=== PATIENT | female | born 1950 | race Native Hawaiian/Other Pacific Islander ===

== ENCOUNTER 2017-11-24 20:37 | Outpatient (CLI) | payer OTHER ==
[~2017-11-24 20:37] MED LIST: ALLO300T23 PO; DEXILANT60 M1 PO; HYZAAR1 TA2 PO; SPIR25TA66 PO; VENLAFAXINE100 MG PO
[2017-11-25] MEDS ORDERED: OXYC5TAB24 PO (02:07)
[2017-11-25] MEDS ORDERED: SPIRONOLACT25 MG PO (02:08)
[2017-11-25] MEDS ORDERED: TRICOR145 M1 PO (02:10)
== END 2017-11-24 21:11 | disposition short-term general hospital (02) ==
LOC: AMB 20:37
DX: M54.89 Other dorsalgia (principal); W01.198A Fall on same level from slipping, tripping and stumbling with subsequent striking against other object, initial encounter; Y92.092 Bedroom in other non-institutional residence as the place of occurrence of the external cause
CPT/HCPCS: A0425; A0427

== ENCOUNTER 2018-01-03 03:53 | Outpatient (CLI) | payer OTHER ==
[~2018-01-03 03:53] MED LIST changes: +OXYC5TAB24 PO; +SPIRONOLACT25 MG PO; +TRICOR145 M1 PO
== END 2018-01-03 03:57 | disposition short-term general hospital (02) ==
LOC: AMB 03:53
DX: M54.5 Low back pain (principal)
CPT/HCPCS: A0425; A0429

== ENCOUNTER 2018-01-03 03:58 | Emergency (ER) | payer OTHER ==
[~2018-01-03] VITALS: Ht 165.1 cm; Wt 86.2 kg
[2018-01-03 04:08] VITALS: TEMP 98.1
[2018-01-03 08:43] VITALS: BP 148/62
== END 2018-01-03 08:43 | disposition home or self-care (01) ==
LOC: ED 03:58
DX: G89.29 Other chronic pain (principal); M47.897 Other spondylosis, lumbosacral region
CPT/HCPCS: 96372; 99283; J1885

== ENCOUNTER 2018-09-24 14:25 | Outpatient (CLI) | payer OTHER | END 2018-09-24 14:26 | disposition short-term general hospital (02) | LOC: AMB 14:25 | DX: M54.89 Other dorsalgia (principal); Z91.81 History of falling | CPT/HCPCS: A0425; A0429 ==

== ENCOUNTER 2018-09-24 14:29 | Inpatient (IN) | payer OTHER ==
[~2018-09-24] VITALS: Ht 165.1 cm; Wt 95.5 kg
[2018-09-24 14:29] VITALS: BP 171/100; TEMP 98
[2018-09-24 21:24] LABS: PLATELET COUNT 239 K/uL (152-353)
[2018-09-24 21:37] LABS: POTASSIUM 3.7 mmol/L (3.6-5.2)
[2018-09-25 00:32] VITALS: BP 120/69; TEMP 98.1; Ht 165.1 cm; Wt 95.5 kg
[2018-09-25 04:00] VITALS: BP 135/72; TEMP 98.6
[2018-09-25 08:00] VITALS: BP 185/106; TEMP 98.3
[2018-09-25 12:10] VITALS: BP 136/78; TEMP 98.9
[2018-09-25 16:05] VITALS: BP 155/100; TEMP 98.5
[2018-09-25 20:00] VITALS: BP 146/86; TEMP 98.8
[2018-09-26] VITALS: BP 160/78; TEMP 98.6
[2018-09-26 04:00] VITALS: BP 171/82; TEMP 98.8
[2018-09-26 08:05] VITALS: BP 160/94; TEMP 98.3
[2018-09-26 09:31] LABS: POTASSIUM 3.7 mmol/L (3.6-5.2)
[2018-09-26 09:40] LABS: PLATELET COUNT 207 K/uL (152-353)
[2018-09-26 12:06] VITALS: BP 152/79; TEMP 98.2
[2018-09-26 16:03] VITALS: BP 170/88; TEMP 98.7
[2018-09-26 20:00] VITALS: BP 184/93; TEMP 99.1
[2018-09-27] VITALS: BP 172/88; TEMP 98.8
[2018-09-27 04:00] VITALS: BP 165/67; TEMP 98.8
[2018-09-27 08:04] VITALS: BP 155/88; TEMP 98.4
[2018-09-27 12:18] VITALS: BP 168/93; TEMP 98.7
[2018-09-27 16:03] VITALS: BP 140/82; TEMP 98.8
[2018-09-27 16:09] LABS: PLATELET COUNT 187 K/uL (152-353)
[2018-09-27 20:00] VITALS: BP 149/95; TEMP 99
[2018-09-28] VITALS: BP 149/78; TEMP 98.4
[2018-09-28 04:00] VITALS: BP 156/78; TEMP 97.7
[2018-09-28 07:17] LABS: POTASSIUM 3.7 mmol/L (3.6-5.2)
[2018-09-28 08:04] VITALS: BP 154/89; TEMP 98.7
[2018-09-28 12:05] VITALS: BP 147/78; TEMP 98.5
[2018-09-28 16:03] VITALS: BP 170/85; TEMP 99
[2018-09-28 20:00] VITALS: BP 139/94; TEMP 98.7
[2018-09-29] VITALS (17 sets, daily range): BP systolic 103–163; BP diastolic 55–106; TEMP 97–98.8
[2018-09-29 07:03] LABS: POTASSIUM 4.4 mmol/L (3.6-5.2)
[2018-09-30] VITALS (22 sets, daily range): BP systolic 91–154; BP diastolic 64–103; TEMP 97.9–98.1
[2018-09-30 10:30] LABS: POTASSIUM 3.3 mmol/L (3.6-5.2)
[2018-10-01] VITALS (24 sets, daily range): BP systolic 104–134; BP diastolic 56–95; TEMP 98.4–100.1
[2018-10-01 08:21] LABS: POTASSIUM 3.2 mmol/L (3.6-5.2)
[2018-10-01 08:36] LABS: PLATELET COUNT 166 K/uL (152-353)
[2018-10-02] VITALS (21 sets, daily range): BP systolic 107–146; BP diastolic 69–98; TEMP 98.1–99
[2018-10-02 08:04] LABS: POTASSIUM 3.4 mmol/L (3.6-5.2)
[2018-10-02 08:11] LABS: PLATELET COUNT 214 K/uL (152-353)
[2018-10-03] VITALS (20 sets, daily range): BP systolic 91–140; BP diastolic 61–100; TEMP 98.1–99.1
[2018-10-03 08:20] LABS: PLATELET COUNT 288 K/uL (152-353)
[2018-10-03 08:22] LABS: POTASSIUM 3.4 mmol/L (3.6-5.2)
[2018-10-03] MEDS ORDERED: DULO30CA PO (12:59)
[2018-10-03] MEDS ORDERED: VENLAFAXINE75 M2 PO (13:01)
[2018-10-04 00:03] VITALS: BP 123/80; TEMP 98.7
[2018-10-04 04:00] VITALS: BP 121/64; TEMP 98.8
[2018-10-04 06:55] LABS: PLATELET COUNT 280 K/uL (152-353)
[2018-10-04 07:02] LABS: POTASSIUM 3.4 mmol/L (3.6-5.2)
[2018-10-04 08:05] VITALS: BP 123/65; TEMP 98.5
[2018-10-04 12:05] VITALS: BP 155/66; TEMP 98.4
[2018-10-04 15:43] VITALS: BP 135/85; TEMP 98.4
[2018-10-04 20:00] VITALS: BP 141/68; TEMP 98.8
[2018-10-05] VITALS (7 sets, daily range): BP systolic 124–173; BP diastolic 71–94; TEMP 98.2–98.8
[2018-10-05 10:07] LABS: PLATELET COUNT 281 K/uL (152-353)
[2018-10-05 10:15] LABS: POTASSIUM 4.3 mmol/L (3.6-5.2)
[2018-10-06 04:18] VITALS: BP 118/74; TEMP 98.9
[2018-10-06 08:00] VITALS: BP 146/87; TEMP 98.2
[2018-10-06 12:00] VITALS: BP 139/85; TEMP 98.3
== END 2018-10-06 14:30 | DRG 913 ==
LOC: ED 14:29 → ICU 22:50 → MED/SURG 22:50 → ICU 09-29 12:30 → MED/SURG 10-03 18:32
PROVIDERS: Emergency Medicine; Family Medicine
PROC: 5A12012 Performance of Cardiac Output, Single, Manual (ICD-10-PCS; principal; 2018-09-29)
DX: S39.82XA Other specified injuries of lower back, initial encounter (principal); I46.9 Cardiac arrest, cause unspecified; J18.8 Other pneumonia, unspecified organism; N39.0 Urinary tract infection, site not specified; N18.4 Chronic kidney disease, stage 4 (severe); L02.214 Cutaneous abscess of groin; N17.8 Other acute kidney failure; W18.2XXA Fall in (into) shower or empty bathtub, initial encounter; Z91.81 History of falling; Y93.89 Activity, other specified; Y92.89 Other specified places as the place of occurrence of the external cause; B96.20 Unspecified Escherichia coli [E. coli] as the cause of diseases classified elsewhere; E86.0 Dehydration; I12.9 Hypertensive chronic kidney disease with stage 1 through stage 4 chronic kidney disease, or unspecified chronic kidney disease; D63.1 Anemia in chronic kidney disease; K21.9 Gastro-esophageal reflux disease without esophagitis; M15.8 Other polyosteoarthritis; R55 Syncope and collapse; R06.09 Other forms of dyspnea; Y95 Nosocomial condition
CPT/HCPCS: 36415; 36600; 80048; 80053; 80307; 81000; 82550; 82553; 82805; 84484; 85007; 85027; 87070; 87077; 87086; 87088; 87186; 87205; 87324; 87449; 87899; 92950; 93005; 94668; 94760; 96360; 96365; 96366; 96372; 96375; 99284; J0696; J1885; J2060; J2543; J3490

== ENCOUNTER 2018-10-06 15:45 | Inpatient (IN) | payer OTHER ==
[~2018-10-06 15:45] MED LIST changes: +DULO30CA PO; +VENLAFAXINE75 M2 PO
== END 2018-10-28 11:08 | disposition still patient (30) ==
LOC: PAVB 15:45
PROVIDERS: ADMIT Internal Medicine

== ENCOUNTER 2018-10-07 05:16 | Outpatient (CLI) | payer OTHER ==
[2018-10-07 11:52] LABS: PLATELET COUNT 410 K/uL (152-353)
[2018-10-07 12:32] LABS: POTASSIUM 4.3 mmol/L (3.6-5.2)
== END 2018-10-07 22:07 | disposition home or self-care (01) ==
LOC: LAB 05:16
PROVIDERS: Internal Medicine
DX: Z16.24 Resistance to multiple antibiotics (principal); E78.5 Hyperlipidemia, unspecified; I10 Essential (primary) hypertension; D64.9 Anemia, unspecified
CPT/HCPCS: 80053; 82306; 82607; 83540; 84443; 84550; 85027; 87081

== ENCOUNTER 2018-10-17 07:53 | Day surgery (SDC) | payer OTHER | END 2018-10-17 09:20 | disposition home or self-care (01) | LOC: OR 07:53 | PROC: 05HM33Z Insertion of Infusion Device into Right Internal Jugular Vein, Percutaneous Approach (ICD-10-PCS; principal; 2018-10-17) | DX: I87.8 Other specified disorders of veins (principal) | CPT/HCPCS: C1788; J0690; J1644; J1885; J3010; J3490 ==

== ENCOUNTER 2018-10-27 10:06 | Outpatient (CLI) | payer OTHER | END 2018-10-27 19:00 | disposition home or self-care (01) | LOC: RAD 10:06 | DX: M19.019 Primary osteoarthritis, unspecified shoulder (principal); Z13.820 Encounter for screening for osteoporosis; Z78.0 Asymptomatic menopausal state ==

== ENCOUNTER 2018-10-28 11:37 | Inpatient (IN) | payer OTHER | END 2018-11-28 13:45 | disposition still patient (30) | LOC: PAVB 11:37 | PROVIDERS: ADMIT Internal Medicine ==

== ENCOUNTER 2018-11-28 13:54 | Inpatient (IN) | payer OTHER | END 2018-12-26 11:41 | disposition still patient (30) | LOC: PAVB 13:54 | PROVIDERS: ADMIT Internal Medicine ==

== ENCOUNTER 2018-12-23 13:56 | Outpatient (CLI) | payer OTHER | END 2018-12-23 19:30 | disposition home or self-care (01) | LOC: RAD 13:56 | DX: M25.569 Pain in unspecified knee (principal); M54.9 Dorsalgia, unspecified ==

== ENCOUNTER 2018-12-26 11:55 | Inpatient (IN) | payer OTHER | END 2019-01-26 11:36 | disposition still patient (30) | LOC: PAVB 11:55 | PROVIDERS: ADMIT Internal Medicine ==

== ENCOUNTER 2018-12-29 06:56 | Outpatient (CLI) | payer OTHER | END 2018-12-29 21:44 | disposition other institution (70) | LOC: LAB 06:56 | DX: E55.9 Vitamin D deficiency, unspecified (principal) | CPT/HCPCS: 36415; 82306; 82310 ==

== ENCOUNTER 2019-01-26 11:45 | Inpatient (IN) | payer OTHER | END 2019-02-25 12:44 | disposition still patient (30) | LOC: PAVB 11:45 | PROVIDERS: ADMIT Internal Medicine ==

== ENCOUNTER 2019-02-04 13:09 | Outpatient (CLI) | payer OTHER | END 2019-02-04 20:43 | disposition home or self-care (01) | LOC: MRI 13:09 | DX: M54.89 Other dorsalgia (principal) ==

== ENCOUNTER 2019-02-25 13:29 | Inpatient (IN) | payer OTHER | END 2019-03-28 08:41 | disposition still patient (30) | LOC: PAVB 13:29 | PROVIDERS: ADMIT Internal Medicine | DX: Z51.89 Encounter for other specified aftercare (principal) ==

== ENCOUNTER 2019-03-28 08:49 | Inpatient (IN) | payer OTHER | END 2019-04-27 09:41 | disposition still patient (30) | LOC: PAVB 08:49 | PROVIDERS: ADMIT Internal Medicine ==

== ENCOUNTER 2019-03-31 05:41 | Outpatient (CLI) | payer OTHER ==
[2019-03-31 06:23] LABS: PLATELET COUNT 225 K/uL (152-353)
[2019-03-31 06:32] LABS: POTASSIUM 4.3 mmol/L (3.6-5.2)
== END 2019-03-31 19:12 | disposition home or self-care (01) ==
LOC: LAB 05:41
PROVIDERS: Internal Medicine
DX: I10 Essential (primary) hypertension (principal)
CPT/HCPCS: 80053; 85027

== ENCOUNTER 2019-04-27 09:50 | Inpatient (IN) | payer OTHER | END 2019-05-28 10:38 | disposition still patient (30) | LOC: PAVB 09:50 | PROVIDERS: ADMIT Internal Medicine | DX: M43.26 Fusion of spine, lumbar region (principal); M48.07 Spinal stenosis, lumbosacral region; M62.81 Muscle weakness (generalized); R27.8 Other lack of coordination; Z74.1 Need for assistance with personal care; K76.9 Liver disease, unspecified; G89.29 Other chronic pain; D64.9 Anemia, unspecified; F32.89 Other specified depressive episodes; J44.9 Chronic obstructive pulmonary disease, unspecified ==

== ENCOUNTER 2019-05-14 08:13 | Outpatient (CLI) | payer OTHER ==
[~2019-05-14] VITALS: Ht 165.1 cm; Wt 82.6 kg
== END 2019-05-14 23:01 | disposition home or self-care (01) ==
LOC: NM 08:13
DX: Z01.818 Encounter for other preprocedural examination (principal); I10 Essential (primary) hypertension; Z79.899 Other long term (current) drug therapy
CPT/HCPCS: A9500; J2785

== ENCOUNTER 2019-05-19 17:50 | Outpatient (CLI) | payer OTHER ==
[2019-05-19 21:11] LABS: PLATELET COUNT 285 K/uL (152-353)
== END 2019-05-19 22:21 | disposition home or self-care (01) ==
LOC: LAB 17:50
PROVIDERS: Internal Medicine
DX: Z01.818 Encounter for other preprocedural examination (principal)
CPT/HCPCS: 80053; 85027

== ENCOUNTER 2019-05-28 11:36 | Inpatient (IN) | payer OTHER ==
[2019-05-30 17:07] LABS: PLATELET COUNT 259 K/uL (152-353)
[2019-05-30 17:40] LABS: POTASSIUM 4.6 mmol/L (3.6-5.2)
[2019-05-31] MEDS ORDERED: ZINC220C4 PO (00:38)
[2019-05-31] MEDS ORDERED: ENOX40IN SC (00:39)
[2019-05-31] MEDS ORDERED: MULT VITAMIN PO (00:40)
[2019-05-31] MEDS ORDERED: ASCO500T18 PO (00:41)
[2019-05-31] MEDS ORDERED: ALEN70TA19 PO (00:45)
[2019-05-31] MEDS ORDERED: CALCIUM 600+D31 TAB PO (00:52)
[2019-05-31] MEDS ORDERED: CULTURELL3 PO (00:53)
[2019-05-31] MEDS ORDERED: LOSA50TA PO (00:58)
[2019-05-31] MEDS ORDERED: MIRALAX3350 N1 PO (01:01)
[2019-05-31] MEDS ORDERED: VENLAFAXINE HC100 MG PO (01:02)
[2019-05-31] MEDS ORDERED: LYRICA150 MG PO (01:03)
[2019-05-31] MEDS ORDERED: VITAMIN D32000 UNI1 PO (01:29)
[2019-05-31] MEDS ORDERED: DICYCLOMINE HYD10 MG PO (01:30)
[2019-05-31] MEDS ORDERED: TIZA4TAB5 PO (01:31)
[2019-05-31] MEDS ORDERED: TYLENOL325 MG PO (01:32)
[2019-05-31] MEDS ORDERED: PERCOCET1 TA3 PO (01:35)
== END 2019-06-28 16:29 | disposition still patient (30) ==
LOC: PAVB 11:36
PROVIDERS: ADMIT Internal Medicine
DX: M43.26 Fusion of spine, lumbar region (principal); M48.07 Spinal stenosis, lumbosacral region; M62.81 Muscle weakness (generalized); R27.8 Other lack of coordination; Z74.1 Need for assistance with personal care; K76.9 Liver disease, unspecified; G89.29 Other chronic pain; D64.9 Anemia, unspecified; F32.89 Other specified depressive episodes; J44.9 Chronic obstructive pulmonary disease, unspecified
CPT/HCPCS: 36415; 80053; 82272; 83036; 85027

== ENCOUNTER 2019-05-30 19:35 | Inpatient (IN) | payer OTHER ==
[~2019-05-30] VITALS: Ht 165.1 cm; Wt 93.9 kg
[2019-05-30 23:33] VITALS: BP 104/51; TEMP 98.5; Ht 165.1 cm; Wt 93.9 kg
[2019-05-31] VITALS (7 sets, daily range): BP systolic 89–117; BP diastolic 45–60; TEMP 98–99
[2019-05-31] MEDS ORDERED: ZINC220C4 PO (00:38)
[2019-05-31] MEDS ORDERED: ENOX40IN SC (00:39)
[2019-05-31] MEDS ORDERED: MULT VITAMIN PO (00:40)
[2019-05-31] MEDS ORDERED: ASCO500T18 PO (00:41)
[2019-05-31] MEDS ORDERED: ALEN70TA19 PO (00:45)
[2019-05-31] MEDS ORDERED: CALCIUM 600+D31 TAB PO (00:52)
[2019-05-31] MEDS ORDERED: CULTURELL3 PO (00:53)
[2019-05-31] MEDS ORDERED: LOSA50TA PO (00:58)
[2019-05-31] MEDS ORDERED: MIRALAX3350 N1 PO (01:01)
[2019-05-31] MEDS ORDERED: VENLAFAXINE HC100 MG PO (01:02)
[2019-05-31] MEDS ORDERED: LYRICA150 MG PO (01:03)
[2019-05-31] MEDS ORDERED: VITAMIN D32000 UNI1 PO (01:29)
[2019-05-31] MEDS ORDERED: DICYCLOMINE HYD10 MG PO (01:30)
[2019-05-31] MEDS ORDERED: TIZA4TAB5 PO (01:31)
[2019-05-31] MEDS ORDERED: TYLENOL325 MG PO (01:32)
[2019-05-31] MEDS ORDERED: PERCOCET1 TA3 PO (01:35)
[2019-06-01 03:59] VITALS: BP 104/56; TEMP 98
[2019-06-01 05:32] LABS: PLATELET COUNT 328 K/uL (152-353)
[2019-06-01 05:48] LABS: POTASSIUM 4.3 mmol/L (3.6-5.2)
[2019-06-01 08:00] VITALS: BP 100/60; TEMP 98.2
== END 2019-06-01 14:40 | DRG 683 ==
LOC: MED/SURG 19:35
PROVIDERS: ADMIT Internal Medicine
PROC: 30243N1 Transfusion of Nonautologous Red Blood Cells into Central Vein, Percutaneous Approach (ICD-10-PCS; principal; 2019-05-31)
DX: I12.9 Hypertensive chronic kidney disease with stage 1 through stage 4 chronic kidney disease, or unspecified chronic kidney disease (principal); N18.4 Chronic kidney disease, stage 4 (severe); N17.8 Other acute kidney failure; D63.1 Anemia in chronic kidney disease; E86.0 Dehydration; R53.1 Weakness; I95.89 Other hypotension; J44.9 Chronic obstructive pulmonary disease, unspecified; K70.10 Alcoholic hepatitis without ascites
CPT/HCPCS: 36415; 80048; 85027; 86850; 86900; 86901; 86922; J1642; J1940; P9016

== ENCOUNTER 2019-06-08 06:00 | Outpatient (CLI) | payer OTHER ==
[~2019-06-08 06:00] MED LIST changes: +ALEN70TA19 PO; +ASCO500T18 PO; +CALCIUM 600+D31 TAB PO; +CULTURELL3 PO; +DICYCLOMINE HYD10 MG PO; +ENOX40IN SC; +LOSA50TA PO; +LYRICA150 MG PO; +MIRALAX3350 N1 PO; +MULT VITAMIN PO; +PERCOCET1 TA3 PO; +TIZA4TAB5 PO; +TYLENOL325 MG PO; +VENLAFAXINE HC100 MG PO; +VITAMIN D32000 UNI1 PO; +ZINC220C4 PO
== END 2019-06-08 20:28 | disposition home or self-care (01) ==
LOC: LAB 06:00
DX: D64.89 Other specified anemias (principal)
CPT/HCPCS: 82272

== ENCOUNTER 2019-06-28 16:38 | Inpatient (IN) | payer OTHER | END 2019-07-28 09:35 | disposition still patient (30) | LOC: PAVB 16:38 | PROVIDERS: ADMIT Internal Medicine ==

== ENCOUNTER 2019-06-29 05:37 | Outpatient (CLI) | payer OTHER | END 2019-06-29 21:48 | LOC: LAB 05:37 | DX: E55.9 Vitamin D deficiency, unspecified (principal) | CPT/HCPCS: 36415; 82306; 82310 ==

== ENCOUNTER 2019-07-28 11:51 | Inpatient (IN) | payer OTHER | END 2019-08-28 11:12 | disposition still patient (30) | LOC: PAVB 11:51 | PROVIDERS: ADMIT Internal Medicine ==

== ENCOUNTER → 2019-08-22 | Outpatient (CLI) | payer OTHER | LOC: LAB 20:49 | DX: R82.998 Other abnormal findings in urine (principal); M79.18 Myalgia, other site; R50.9 Fever, unspecified | CPT/HCPCS: 81000; 87077; 87086; 87088; 87186 ==

== ENCOUNTER 2019-08-28 12:00 | Inpatient (IN) | payer OTHER | END 2019-09-27 08:00 | disposition still patient (30) | LOC: PAVB 12:00 | PROVIDERS: ADMIT Internal Medicine | CPT/HCPCS: 87077 ==

== ENCOUNTER 2019-09-01 05:46 | Outpatient (CLI) | payer OTHER | END 2019-09-01 20:29 | disposition home or self-care (01) | LOC: LAB 05:46 | DX: E11.21 Type 2 diabetes mellitus with diabetic nephropathy (principal); N39.0 Urinary tract infection, site not specified | CPT/HCPCS: 81000; 83036; 87077; 87086; 87088; 87185; 87186 ==

== ENCOUNTER 2019-09-07 14:05 | Outpatient (CLI) | payer OTHER | END 2019-09-07 19:18 | disposition home or self-care (01) | LOC: CT 14:05 | DX: R22.0 Localized swelling, mass and lump, head (principal) ==

== ENCOUNTER 2019-09-10 04:25 | Outpatient (CLI) | payer OTHER ==
[2019-09-10 05:38] LABS: PLATELET COUNT 222 K/uL (152-353)
[2019-09-10 05:42] LABS: POTASSIUM 3.6 mmol/L (3.6-5.2)
== END 2019-09-10 19:47 | disposition home or self-care (01) ==
LOC: LAB 04:25
PROVIDERS: Internal Medicine
DX: Z01.818 Encounter for other preprocedural examination (principal)
CPT/HCPCS: 80053; 85027

== ENCOUNTER 2019-09-10 07:34 | Day surgery (SDC) | payer OTHER | END 2019-09-10 13:36 | LOC: OR 07:34 | PROC: 0DB68ZZ Excision of Stomach, Via Natural or Artificial Opening Endoscopic (ICD-10-PCS; principal; 2019-09-10) | PROC: 0DJD8ZZ Inspection of Lower Intestinal Tract, Via Natural or Artificial Opening Endoscopic (ICD-10-PCS; 2019-09-10) | DX: K44.9 Diaphragmatic hernia without obstruction or gangrene (principal); K92.2 Gastrointestinal hemorrhage, unspecified; D64.89 Other specified anemias; Z12.11 Encounter for screening for malignant neoplasm of colon; Z01.818 Encounter for other preprocedural examination | CPT/HCPCS: 80053; 85027; J1642; J2001; J2405; J2704; J2765 ==

== ENCOUNTER 2019-09-27 10:10 | Inpatient (IN) | payer OTHER | END 2019-10-28 09:04 | disposition still patient (30) | LOC: PAVB 10:10 | PROVIDERS: ADMIT Internal Medicine ==

== ENCOUNTER 2019-09-30 05:13 | Outpatient (CLI) | payer OTHER ==
[2019-09-30 06:45] LABS: PLATELET COUNT 239 K/uL (152-353)
[2019-09-30 07:02] LABS: POTASSIUM 4.2 mmol/L (3.6-5.2)
== END 2019-09-30 20:42 | disposition home or self-care (01) ==
LOC: LAB 05:13
PROVIDERS: Internal Medicine
DX: I12.9 Hypertensive chronic kidney disease with stage 1 through stage 4 chronic kidney disease, or unspecified chronic kidney disease (principal)
CPT/HCPCS: 36415; 80053; 80061; 85027

== ENCOUNTER 2019-10-28 09:12 | Inpatient (IN) | payer OTHER | END 2019-11-28 09:59 | disposition still patient (30) | LOC: PAVB 09:12 | PROVIDERS: ADMIT Internal Medicine ==

== ENCOUNTER 2019-10-29 06:24 | Outpatient (CLI) | payer OTHER | END 2019-10-29 19:30 | disposition home or self-care (01) | LOC: LAB 06:24 | DX: K76.9 Liver disease, unspecified (principal); E03.8 Other specified hypothyroidism; K70.10 Alcoholic hepatitis without ascites; K72.10 Chronic hepatic failure without coma | CPT/HCPCS: 80074; 80076; 84443; 84550 ==

== ENCOUNTER 2019-10-30 17:30 | Outpatient (CLI) | payer OTHER | END 2019-10-30 19:33 | disposition home or self-care (01) | LOC: LAB 17:30 | DX: K72.10 Chronic hepatic failure without coma (principal) | CPT/HCPCS: 87522 ==

== ENCOUNTER 2019-11-19 23:49 | Outpatient (CLI) | payer OTHER | END 2019-11-19 23:59 | disposition home or self-care (01) | LOC: LAB 23:49 | DX: R30.0 Dysuria (principal); R50.9 Fever, unspecified; R82.998 Other abnormal findings in urine | CPT/HCPCS: 81000; 87077; 87086; 87088; 87186 ==

== ENCOUNTER 2019-11-28 10:10 | Inpatient (IN) | payer OTHER ==
[~2019-11-28] VITALS: Ht 165.1 cm; Wt 91.2 kg
== END 2019-12-27 13:18 | disposition still patient (30) ==
LOC: PAVB 10:10
PROVIDERS: ADMIT Internal Medicine

== ENCOUNTER 2019-12-03 05:14 | Outpatient (CLI) | payer OTHER | END 2019-12-03 19:34 | disposition home or self-care (01) | LOC: LAB 05:14 | DX: E11.9 Type 2 diabetes mellitus without complications (principal) | CPT/HCPCS: 83036 ==

== ENCOUNTER 2019-12-06 05:39 | Outpatient (CLI) | payer OTHER | END 2019-12-06 19:09 | disposition home or self-care (01) | LOC: LAB 05:39 | DX: N39.0 Urinary tract infection, site not specified (principal) | CPT/HCPCS: 81000; 87088 ==

== ENCOUNTER 2019-12-27 13:31 | Inpatient (IN) | payer OTHER | END 2020-01-27 09:46 | disposition still patient (30) | LOC: PAVB 13:31 | PROVIDERS: ADMIT Internal Medicine ==

== ENCOUNTER 2019-12-30 11:40 | Outpatient (CLI) | payer OTHER | END 2019-12-30 19:22 | disposition home or self-care (01) | LOC: LAB 11:40 | DX: D64.89 Other specified anemias (principal); E55.9 Vitamin D deficiency, unspecified | CPT/HCPCS: 82306; 82310 ==

== ENCOUNTER 2020-01-04 17:24 | Outpatient (CLI) | payer OTHER | END 2020-01-04 19:20 | disposition home or self-care (01) | LOC: RAD 17:24 | DX: R06.02 Shortness of breath (principal); R60.0 Localized edema; I12.9 Hypertensive chronic kidney disease with stage 1 through stage 4 chronic kidney disease, or unspecified chronic kidney disease | CPT/HCPCS: 36415; 83880 ==

== ENCOUNTER 2020-01-14 15:46 | Outpatient (CLI) | payer OTHER ==
[2020-01-14 16:29] LABS: PLATELET COUNT 260 K/uL (152-353)
== END 2020-01-14 19:05 | disposition home or self-care (01) ==
LOC: LAB 15:46
PROVIDERS: Internal Medicine
DX: D64.89 Other specified anemias (principal)
CPT/HCPCS: 85027

== ENCOUNTER 2020-01-27 10:51 | Inpatient (IN) | payer OTHER | END 2020-02-26 09:07 | disposition still patient (30) | LOC: PAVB 10:51 | PROVIDERS: ADMIT Internal Medicine ==

== ENCOUNTER 2020-02-26 10:53 | Inpatient (IN) | payer OTHER | END 2020-03-28 09:14 | disposition still patient (30) | LOC: PAVB 10:53 | PROVIDERS: ADMIT Internal Medicine | CPT/HCPCS: 87635; G2061; U0002 ==

== ENCOUNTER 2020-03-03 06:04 | Outpatient (CLI) | payer OTHER | END 2020-03-03 20:08 | disposition home or self-care (01) | LOC: LAB 06:04 | DX: E11.9 Type 2 diabetes mellitus without complications (principal) | CPT/HCPCS: 83036 ==

== ENCOUNTER 2020-03-16 19:19 | Outpatient (CLI) | payer OTHER | END 2020-03-16 22:24 | disposition home or self-care (01) | LOC: RAD 19:19 | DX: R09.02 Hypoxemia (principal) ==

== ENCOUNTER 2020-03-17 04:58 | Outpatient (CLI) | payer OTHER | END 2020-03-17 22:52 | disposition home or self-care (01) | LOC: LAB 04:58 | PROVIDERS: Internal Medicine | DX: R09.02 Hypoxemia (principal); R60.0 Localized edema | CPT/HCPCS: 80053; 83880 ==

== ENCOUNTER 2020-03-28 11:08 | Inpatient (IN) | payer OTHER | END 2020-04-27 10:23 | disposition still patient (30) | LOC: PAVB 11:08 | PROVIDERS: ADMIT Internal Medicine | CPT/HCPCS: 87635; U0002 ==

== ENCOUNTER 2020-04-19 10:57 | Outpatient (CLI) | payer OTHER | END 2020-04-19 21:31 | disposition home or self-care (01) | LOC: RAD 10:57 | DX: M25.551 Pain in right hip (principal) ==

== ENCOUNTER 2020-04-26 05:42 | Outpatient (CLI) | payer OTHER ==
[2020-04-26 08:22] LABS: POTASSIUM 4.2 mmol/L (3.6-5.2)
== END 2020-04-26 20:31 | disposition home or self-care (01) ==
LOC: LAB 05:42
PROVIDERS: Internal Medicine
DX: Z51.81 Encounter for therapeutic drug level monitoring (principal)
CPT/HCPCS: 80048

== ENCOUNTER 2020-04-27 11:42 | Inpatient (IN) | payer OTHER | END 2020-05-28 09:20 | disposition still patient (30) | LOC: PAVB 11:42 | PROVIDERS: ADMIT Internal Medicine | CPT/HCPCS: 87635; U0002 ==

== ENCOUNTER 2020-05-03 06:38 | Outpatient (CLI) | payer OTHER | END 2020-05-03 22:28 | disposition home or self-care (01) | LOC: LAB 06:38 | DX: K70.10 Alcoholic hepatitis without ascites (principal); K76.89 Other specified diseases of liver; K74.69 Other cirrhosis of liver; Z79.899 Other long term (current) drug therapy | CPT/HCPCS: 84443; 84550 ==

== ENCOUNTER 2020-05-06 16:31 | Outpatient (CLI) | payer OTHER | END 2020-05-06 19:03 | disposition home or self-care (01) | LOC: LAB 16:31 | DX: R10.84 Generalized abdominal pain (principal); R53.83 Other fatigue; R82.998 Other abnormal findings in urine | CPT/HCPCS: 81000; 87077; 87086; 87088; 87186 ==

== ENCOUNTER 2020-05-17 10:32 | Outpatient (CLI) | payer OTHER | END 2020-05-17 19:07 | disposition home or self-care (01) | LOC: RAD 10:32 | DX: M25.511 Pain in right shoulder (principal) ==

== ENCOUNTER 2020-05-28 09:58 | Inpatient (IN) | payer OTHER | END 2020-06-28 12:02 | disposition still patient (30) | LOC: PAVB 09:58 | PROVIDERS: ADMIT Internal Medicine | CPT/HCPCS: 87635; U0002; U0003 ==

== ENCOUNTER 2020-06-28 12:56 | Inpatient (IN) | payer OTHER | END 2020-07-28 11:04 | disposition still patient (30) | LOC: PAVB 12:56 | PROVIDERS: ADMIT Internal Medicine ==

== ENCOUNTER 2020-07-01 06:27 | Outpatient (CLI) | payer OTHER | END 2020-07-01 20:02 | disposition home or self-care (01) | LOC: LAB 06:27 | DX: D64.89 Other specified anemias (principal) | CPT/HCPCS: 82306; 82310 ==

== ENCOUNTER 2020-07-28 13:41 | Inpatient (IN) | payer OTHER | END 2020-08-28 08:00 | disposition still patient (30) | LOC: PAVB 13:41 | PROVIDERS: ADMIT Internal Medicine ==

== ENCOUNTER 2020-08-28 09:00 | Inpatient (IN) | payer OTHER | END 2020-09-27 09:59 | disposition still patient (30) | LOC: PAVB 09:00 | PROVIDERS: ADMIT Internal Medicine; ATTEND Internal Medicine ==

== ENCOUNTER 2020-09-27 11:04 | Inpatient (IN) | payer OTHER ==
[2020-10-03] MEDS ORDERED: DOCU100C10 PO (18:05)
[2020-10-03] MEDS ORDERED: OMEPRAZOLE DR40 MG PO (18:07)
[2020-10-03] MEDS ORDERED: VENLAFAXINE50 MG PO (18:08)
[2020-10-03] MEDS ORDERED: FLUTMIS6 INH (18:09)
[2020-10-03] MEDS ORDERED: NEURONTIN800 MG PO (18:11)
[2020-10-03] MEDS ORDERED: FURO40TA93 PO (18:12)
[2020-10-03] MEDS ORDERED: TRAMADOL HYDROC50 MG PO (18:13)
== END 2020-10-28 09:03 | disposition still patient (30) ==
LOC: PAVB 11:04
PROVIDERS: ADMIT Internal Medicine; ATTEND Internal Medicine
DX: N18.6 End stage renal disease (principal); Z99.2 Dependence on renal dialysis; N13.30 Unspecified hydronephrosis; Z74.1 Need for assistance with personal care; R26.2 Difficulty in walking, not elsewhere classified; M62.81 Muscle weakness (generalized); K74.60 Unspecified cirrhosis of liver; E66.01 Morbid (severe) obesity due to excess calories; K70.40 Alcoholic hepatic failure without coma; R33.9 Retention of urine, unspecified; N25.81 Secondary hyperparathyroidism of renal origin

== ENCOUNTER 2020-09-30 07:52 | Outpatient (CLI) | payer OTHER ==
[2020-09-30 08:07] LABS: PLATELET COUNT 305 K/uL (152-353)
[2020-09-30 08:14] LABS: POTASSIUM 3.6 mmol/L (3.6-5.2)
== END 2020-09-30 18:54 | disposition home or self-care (01) ==
LOC: LAB 07:52
PROVIDERS: ATTEND Internal Medicine
DX: I10 Essential (primary) hypertension (principal); D64.89 Other specified anemias; E78.49 Other hyperlipidemia
CPT/HCPCS: 80053; 80061; 85027

== ENCOUNTER 2020-10-03 07:18 | Inpatient (IN) | payer OTHER ==
[~2020-10-03] VITALS: Ht 165.1 cm; Wt 98.2 kg
[2020-10-03 07:49] LABS: POTASSIUM 4.1 mmol/L (3.6-5.2)
[2020-10-03] MEDS ORDERED: DOCU100C10 PO (18:05)
[2020-10-03] MEDS ORDERED: OMEPRAZOLE DR40 MG PO (18:07)
[2020-10-03] MEDS ORDERED: VENLAFAXINE50 MG PO (18:08)
[2020-10-03] MEDS ORDERED: FLUTMIS6 INH (18:09)
[2020-10-03] MEDS ORDERED: NEURONTIN800 MG PO (18:11)
[2020-10-03] MEDS ORDERED: FURO40TA93 PO (18:12)
[2020-10-03] MEDS ORDERED: TRAMADOL HYDROC50 MG PO (18:13)
[2020-10-03 18:45] VITALS: BP 163/84; TEMP 98.6
[2020-10-04] VITALS: BP 144/66; TEMP 98.7
[2020-10-04 04:00] VITALS: BP 136/59; TEMP 98.8
[2020-10-04 05:44] LABS: PLATELET COUNT 364 K/uL (152-353)
[2020-10-04 06:10] LABS: POTASSIUM 4.1 mmol/L (3.6-5.2)
[2020-10-04 08:00] VITALS: BP 137/68; TEMP 98.2
[2020-10-04 12:00] VITALS: BP 144/65; TEMP 98
[2020-10-04 16:00] VITALS: BP 149/75; TEMP 99.7
[2020-10-04 20:00] VITALS: BP 163/76; TEMP 99.3
[2020-10-05] VITALS (7 sets, daily range): BP systolic 141–183; BP diastolic 58–85; TEMP 97.8–99.1
[2020-10-05 06:28] LABS: POTASSIUM 3.9 mmol/L (3.6-5.2)
[2020-10-05 08:12] LABS: PLATELET COUNT 393 K/uL (152-353)
[2020-10-06 04:05] VITALS: BP 153/71; TEMP 98.1
[2020-10-06 08:00] VITALS: BP 176/88; TEMP 98.3
[2020-10-06 12:00] VITALS: BP 187/94; TEMP 98.5
[2020-10-06 16:00] VITALS: BP 194/90; TEMP 98.1
== END 2020-10-06 18:07 | disposition short-term general hospital (02) | DRG 292 ==
LOC: LAB 07:18 → MED/SURG 17:00
PROVIDERS: Internal Medicine; ADMIT Internal Medicine; ATTEND Internal Medicine
DX: I13.2 Hypertensive heart and chronic kidney disease with heart failure and with stage 5 chronic kidney disease, or end stage renal disease (principal); N18.5 Chronic kidney disease, stage 5; N17.8 Other acute kidney failure; N39.0 Urinary tract infection, site not specified; I50.89 Other heart failure; J44.9 Chronic obstructive pulmonary disease, unspecified; D53.9 Nutritional anemia, unspecified; B96.20 Unspecified Escherichia coli [E. coli] as the cause of diseases classified elsewhere; G62.89 Other specified polyneuropathies; G89.4 Chronic pain syndrome; F32.89 Other specified depressive episodes
CPT/HCPCS: 36415; 80048; 80053; 81000; 82570; 82607; 82728; 82746; 83540; 84300; 85027; 87077; 87086; 87088; 87186; J0360; J0696

== ENCOUNTER 2020-10-28 09:19 | Inpatient (IN) | payer OTHER ==
[~2020-10-28 09:19] MED LIST changes: +DOCU100C10 PO; +FLUTMIS6 INH; +FURO40TA93 PO; +NEURONTIN800 MG PO; +OMEPRAZOLE DR40 MG PO; +TRAMADOL HYDROC50 MG PO; +VENLAFAXINE50 MG PO
== END 2020-11-28 14:56 | disposition still patient (30) ==
LOC: PAVB 09:19
PROVIDERS: ADMIT Internal Medicine; ATTEND Internal Medicine
DX: N18.6 End stage renal disease (principal); Z99.2 Dependence on renal dialysis; N13.30 Unspecified hydronephrosis; Z74.1 Need for assistance with personal care; R26.2 Difficulty in walking, not elsewhere classified; M62.81 Muscle weakness (generalized); K74.60 Unspecified cirrhosis of liver; E66.01 Morbid (severe) obesity due to excess calories; K70.40 Alcoholic hepatic failure without coma; R33.9 Retention of urine, unspecified; N25.81 Secondary hyperparathyroidism of renal origin
CPT/HCPCS: 84443; 84550

== ENCOUNTER 2020-11-03 14:27 | Outpatient (CLI) | payer OTHER | END 2020-11-03 21:17 | disposition home or self-care (01) | LOC: LAB 14:27 | PROVIDERS: ATTEND Internal Medicine | DX: E03.8 Other specified hypothyroidism (principal); K70.10 Alcoholic hepatitis without ascites; K76.89 Other specified diseases of liver; K74.60 Unspecified cirrhosis of liver | CPT/HCPCS: 84443; 84550 ==

== ENCOUNTER 2020-11-28 15:11 | Inpatient (IN) | payer OTHER | END 2020-12-26 09:54 | disposition still patient (30) | LOC: PAVB 15:11 | PROVIDERS: ADMIT Internal Medicine; ATTEND Internal Medicine | DX: N18.6 End stage renal disease (principal); Z99.2 Dependence on renal dialysis; N13.30 Unspecified hydronephrosis; Z74.1 Need for assistance with personal care; R26.2 Difficulty in walking, not elsewhere classified; M62.81 Muscle weakness (generalized); K74.60 Unspecified cirrhosis of liver; E66.01 Morbid (severe) obesity due to excess calories; K70.40 Alcoholic hepatic failure without coma; R33.9 Retention of urine, unspecified; N25.81 Secondary hyperparathyroidism of renal origin ==

== ENCOUNTER 2020-12-02 08:22 | Outpatient (CLI) | payer OTHER | END 2020-12-02 19:25 | disposition home or self-care (01) | LOC: LAB 08:22 | PROVIDERS: ATTEND Internal Medicine | DX: E11.9 Type 2 diabetes mellitus without complications (principal) | CPT/HCPCS: 83036 ==

== ENCOUNTER 2020-12-08 18:23 | Outpatient (CLI) | payer OTHER | END 2020-12-08 20:07 | disposition home or self-care (01) | LOC: LAB 18:23 | PROVIDERS: ATTEND Internal Medicine | DX: R30.9 Painful micturition, unspecified (principal) | CPT/HCPCS: 81000; 87077; 87086; 87088; 87185; 87186 ==

== ENCOUNTER 2020-12-26 10:14 | Inpatient (IN) | payer OTHER | END 2021-01-26 10:14 | disposition still patient (30) | LOC: PAVB 10:14 | PROVIDERS: ADMIT Internal Medicine; ATTEND Internal Medicine ==

== ENCOUNTER 2021-01-26 10:33 | Inpatient (IN) | payer OTHER | END 2021-02-25 10:51 | disposition still patient (30) | LOC: PAVB 10:33 | PROVIDERS: ADMIT Internal Medicine; ATTEND Internal Medicine ==

== ENCOUNTER 2021-02-07 18:55 | Outpatient (CLI) | payer OTHER ==
[2021-02-07 20:11] LABS: PLATELET COUNT 242 K/uL (152-353)
== END 2021-02-07 21:15 | disposition home or self-care (01) ==
LOC: LAB 18:55
PROVIDERS: ATTEND Internal Medicine
DX: I50.9 Heart failure, unspecified (principal); J44.9 Chronic obstructive pulmonary disease, unspecified
CPT/HCPCS: 36415; 80053; 83880; 85027

== ENCOUNTER 2021-02-08 10:45 | Outpatient (CLI) | payer OTHER | END 2021-02-08 21:32 | disposition home or self-care (01) | LOC: RAD 10:45 | PROVIDERS: ATTEND Internal Medicine | DX: R06.02 Shortness of breath (principal) ==

== ENCOUNTER 2021-02-25 11:07 | Inpatient (IN) | payer OTHER | END 2021-03-28 14:39 | disposition still patient (30) | LOC: PAVB 11:07 | PROVIDERS: ADMIT Internal Medicine; ATTEND Internal Medicine ==

== ENCOUNTER 2021-03-01 10:37 | Outpatient (CLI) | payer OTHER | END 2021-03-01 19:20 | disposition home or self-care (01) | LOC: LAB 10:37 | PROVIDERS: ATTEND Internal Medicine | DX: E11.9 Type 2 diabetes mellitus without complications (principal) | CPT/HCPCS: 83036 ==

== ENCOUNTER 2021-03-07 15:27 | Outpatient (CLI) | payer OTHER ==
[2021-03-07 15:45] LABS: PLATELET COUNT 203 K/uL (152-353)
[2021-03-07 16:04] LABS: POTASSIUM 4.2 mmol/L (3.6-5.2)
== END 2021-03-07 22:05 | disposition home or self-care (01) ==
LOC: LAB 15:27
PROVIDERS: ATTEND Internal Medicine
DX: R53.1 Weakness (principal); R53.83 Other fatigue; J44.9 Chronic obstructive pulmonary disease, unspecified; I50.9 Heart failure, unspecified
CPT/HCPCS: 80053; 83880; 85027

== ENCOUNTER 2021-03-08 10:41 | Outpatient (CLI) | payer OTHER | END 2021-03-08 20:43 | disposition home or self-care (01) | LOC: LAB 10:41 | PROVIDERS: ATTEND Internal Medicine | DX: D64.89 Other specified anemias (principal); E53.8 Deficiency of other specified B group vitamins | CPT/HCPCS: 82607; 82746; 82747 ==

== ENCOUNTER 2021-03-10 07:11 | Outpatient (CLI) | payer OTHER | END 2021-03-10 22:37 | disposition home or self-care (01) | LOC: LAB 07:11 | PROVIDERS: ATTEND Internal Medicine | DX: D64.89 Other specified anemias (principal) | CPT/HCPCS: 82272 ==

== ENCOUNTER 2021-03-11 17:22 | Outpatient (CLI) | payer OTHER | END 2021-03-11 21:54 | disposition home or self-care (01) | LOC: LAB 17:22 | PROVIDERS: ATTEND Internal Medicine | DX: D64.89 Other specified anemias (principal) | CPT/HCPCS: 82272 ==

== ENCOUNTER 2021-03-16 12:04 | Outpatient (CLI) | payer OTHER | END 2021-03-16 22:26 | disposition home or self-care (01) | LOC: LAB 12:04 | PROVIDERS: ATTEND Internal Medicine | DX: N89.8 Other specified noninflammatory disorders of vagina (principal) | CPT/HCPCS: 87070 ==

== ENCOUNTER 2021-03-16 17:05 | Outpatient (CLI) | payer OTHER | END 2021-03-16 22:31 | disposition home or self-care (01) | LOC: LAB 17:05 | PROVIDERS: ATTEND Internal Medicine | DX: D64.89 Other specified anemias (principal) | CPT/HCPCS: 82272 ==

== ENCOUNTER 2021-03-20 11:25 | Outpatient (CLI) | payer OTHER | END 2021-03-20 21:00 | disposition home or self-care (01) | LOC: LAB 11:25 | PROVIDERS: ATTEND Internal Medicine | DX: D64.89 Other specified anemias (principal) | CPT/HCPCS: 85014; 85018 ==

== ENCOUNTER 2021-03-28 14:59 | Inpatient (IN) | payer OTHER | END 2021-04-27 08:00 | disposition still patient (30) | LOC: PAVB 14:59 | PROVIDERS: ADMIT Internal Medicine; ATTEND Internal Medicine ==

== ENCOUNTER 2021-04-04 13:09 | Outpatient (CLI) | payer OTHER | END 2021-04-04 22:44 | disposition home or self-care (01) | LOC: US 13:09 | PROVIDERS: ATTEND Internal Medicine | DX: R10.2 Pelvic and perineal pain (principal); N89.8 Other specified noninflammatory disorders of vagina ==

== ENCOUNTER 2021-04-07 08:32 | Outpatient (CLI) | payer OTHER | END 2021-04-07 18:57 | disposition home or self-care (01) | LOC: US 08:32 | PROVIDERS: ATTEND Internal Medicine | DX: N39.0 Urinary tract infection, site not specified (principal); N18.9 Chronic kidney disease, unspecified ==

== ENCOUNTER 2021-04-11 06:24 | Outpatient (CLI) | payer OTHER | END 2021-04-11 19:16 | disposition home or self-care (01) | LOC: LAB 06:24 | PROVIDERS: ATTEND Internal Medicine | DX: Z79.899 Other long term (current) drug therapy (principal) | CPT/HCPCS: 82565; 84520 ==

== ENCOUNTER 2021-04-11 08:17 | Outpatient (CLI) | payer OTHER | END 2021-04-11 19:18 | disposition home or self-care (01) | LOC: CT 08:17 | PROVIDERS: ATTEND Internal Medicine | DX: N13.39 Other hydronephrosis (principal) ==

== ENCOUNTER 2021-04-21 07:00 | Outpatient (CLI) | payer OTHER ==
[2021-05-01 06:50] LABS: POTASSIUM 4.9 mmol/L (3.6-5.2)
== END 2021-04-21 23:59 | disposition home or self-care (01) ==
LOC: LAB 07:00
PROVIDERS: ATTEND Internal Medicine
DX: I10 Essential (primary) hypertension (principal); E11.9 Type 2 diabetes mellitus without complications
CPT/HCPCS: 36415; 80048

== ENCOUNTER 2021-04-24 06:00 | Outpatient (CLI) | payer OTHER | END 2021-04-24 23:59 | disposition home or self-care (01) | LOC: LAB 06:00 | PROVIDERS: ATTEND Internal Medicine | DX: N13.39 Other hydronephrosis (principal); R33.8 Other retention of urine | CPT/HCPCS: 36415; 80053 ==

== ENCOUNTER 2021-04-25 06:05 | Outpatient (CLI) | payer OTHER ==
[2021-05-02 16:33] LABS: POTASSIUM 4.9 mmol/L (3.6-5.2)
== END 2021-04-25 23:59 | disposition home or self-care (01) ==
LOC: LAB 06:05
PROVIDERS: ATTEND Internal Medicine
DX: R33.8 Other retention of urine (principal); N13.39 Other hydronephrosis; N18.4 Chronic kidney disease, stage 4 (severe); D63.1 Anemia in chronic kidney disease
CPT/HCPCS: 36415; 80053

== ENCOUNTER 2021-04-26 06:40 | Outpatient (CLI) | payer OTHER ==
[2021-05-03 15:00] LABS: POTASSIUM 4.6 mmol/L (3.6-5.2)
== END 2021-04-26 23:59 | disposition home or self-care (01) ==
LOC: LAB 06:40
PROVIDERS: ATTEND Internal Medicine
DX: K70.40 Alcoholic hepatic failure without coma (principal); N18.4 Chronic kidney disease, stage 4 (severe); R30.0 Dysuria; D63.1 Anemia in chronic kidney disease; E66.01 Morbid (severe) obesity due to excess calories; I50.9 Heart failure, unspecified; N13.30 Unspecified hydronephrosis
CPT/HCPCS: 36415; 80053

== ENCOUNTER 2021-04-27 09:00 | Inpatient (IN) | payer OTHER | END 2021-05-28 08:00 | disposition still patient (30) | LOC: PAVB 09:00 | PROVIDERS: ADMIT Internal Medicine; ATTEND Internal Medicine ==

== ENCOUNTER 2021-05-02 10:02 | Outpatient (CLI) | payer OTHER ==
[2021-05-02 11:43] LABS: PLATELET COUNT 323 K/uL (152-353)
[2021-05-02 11:57] LABS: POTASSIUM 4.5 mmol/L (3.6-5.2)
== END 2021-05-02 19:13 | disposition home or self-care (01) ==
LOC: LAB 10:02
PROVIDERS: ATTEND Internal Medicine
DX: K76.89 Other specified diseases of liver (principal); K74.69 Other cirrhosis of liver; E03.8 Other specified hypothyroidism; K70.10 Alcoholic hepatitis without ascites
CPT/HCPCS: 80053; 84443; 84550; 85027

== ENCOUNTER 2021-05-16 06:36 | Outpatient (CLI) | payer OTHER | END 2021-05-16 20:50 | disposition home or self-care (01) | LOC: LAB 06:36 | PROVIDERS: ATTEND Internal Medicine | DX: D63.1 Anemia in chronic kidney disease (principal) | CPT/HCPCS: 85014; 85018 ==

== ENCOUNTER 2021-05-23 11:15 | Outpatient (CLI) | payer OTHER | END 2021-05-23 20:37 | disposition home or self-care (01) | LOC: LAB 11:15 | PROVIDERS: ATTEND Internal Medicine | DX: D64.89 Other specified anemias (principal); N18.9 Chronic kidney disease, unspecified | CPT/HCPCS: 85014; 85018 ==

== ENCOUNTER 2021-05-24 07:52 | Outpatient (CLI) | payer OTHER ==
[2021-05-24 08:55] LABS: POTASSIUM 5.1 mmol/L (3.6-5.2)
== END 2021-05-24 23:25 | disposition home or self-care (01) ==
LOC: LAB 07:52
PROVIDERS: ATTEND Internal Medicine
DX: N18.4 Chronic kidney disease, stage 4 (severe) (principal); N13.39 Other hydronephrosis; Z95.5 Presence of coronary angioplasty implant and graft
CPT/HCPCS: 36415; 80048

== ENCOUNTER 2021-05-26 10:42 | Outpatient (CLI) | payer OTHER | END 2021-05-26 22:37 | disposition home or self-care (01) | LOC: LAB 10:42 | PROVIDERS: ATTEND Specialist | DX: R33.8 Other retention of urine (principal); Q62.11 Congenital occlusion of ureteropelvic junction | CPT/HCPCS: 36415; 80048 ==

== ENCOUNTER 2021-05-28 09:00 | Inpatient (IN) | payer OTHER ==
[2021-06-19] MEDS ORDERED: KP FOLIC ACID1 MG PO (16:11)
[2021-06-19] MEDS ORDERED: PREVAGEN EXTRA20 MG PO (16:14)
[2021-06-19] MEDS ORDERED: ONDA4TAB3 PO (16:23)
[2021-06-19] MEDS ORDERED: OXYC5TAB53 PO (16:24)
[2021-06-19] MEDS ORDERED: MACROBID100 MG PO (16:24)
[2021-06-19] MEDS ORDERED: CYAN10009 IM (16:27)
[2021-06-19] MEDS ORDERED: [UNRECOGNIZED DRUG - CODE] INJ (16:28)
[2021-06-26 08:17] LABS: POTASSIUM 4.8 mmol/L (3.6-5.2)
== END 2021-06-28 10:25 | disposition still patient (30) ==
LOC: PAVB 09:00
PROVIDERS: ADMIT Internal Medicine; ATTEND Internal Medicine
DX: N30.00 Acute cystitis without hematuria (principal); B96.20 Unspecified Escherichia coli [E. coli] as the cause of diseases classified elsewhere; B96.4 Proteus (mirabilis) (morganii) as the cause of diseases classified elsewhere; R13.12 Dysphagia, oropharyngeal phase; M62.81 Muscle weakness (generalized); Z74.1 Need for assistance with personal care; R26.2 Difficulty in walking, not elsewhere classified
CPT/HCPCS: 80048; 85014; 85018

== ENCOUNTER 2021-05-30 07:07 | Outpatient (CLI) | payer OTHER | END 2021-05-30 19:15 | disposition home or self-care (01) | LOC: LAB 07:07 | PROVIDERS: ATTEND Internal Medicine | DX: D64.89 Other specified anemias (principal) | CPT/HCPCS: 85014; 85018 ==

== ENCOUNTER 2021-06-06 08:37 | Outpatient (CLI) | payer OTHER | END 2021-06-06 19:19 | disposition home or self-care (01) | LOC: LAB 08:37 | PROVIDERS: ATTEND Internal Medicine | DX: D64.89 Other specified anemias (principal) | CPT/HCPCS: 85014; 85018 ==

== ENCOUNTER 2021-06-09 11:13 | Outpatient (CLI) | payer OTHER ==
[2021-06-09 11:35] LABS: POTASSIUM 5.2 mmol/L (3.6-5.2)
== END 2021-06-09 23:08 | disposition home or self-care (01) ==
LOC: LAB 11:13
PROVIDERS: ATTEND Internal Medicine
DX: N18.4 Chronic kidney disease, stage 4 (severe) (principal); N13.39 Other hydronephrosis
CPT/HCPCS: 36415; 80048

== ENCOUNTER 2021-06-13 07:07 | Outpatient (CLI) | payer OTHER | END 2021-06-13 20:10 | disposition home or self-care (01) | LOC: LAB 07:07 | PROVIDERS: ATTEND Internal Medicine | DX: D64.89 Other specified anemias (principal) | CPT/HCPCS: 85014; 85018 ==

== ENCOUNTER 2021-06-16 13:49 | Outpatient (CLI) | payer OTHER ==
[2021-06-16 14:52] LABS: POTASSIUM 6.2 mmol/L (3.6-5.2)
== END 2021-06-16 19:09 | disposition home or self-care (01) ==
LOC: LAB 13:49
PROVIDERS: ATTEND Internal Medicine
DX: N13.30 Unspecified hydronephrosis (principal); R33.9 Retention of urine, unspecified
CPT/HCPCS: 80048

== ENCOUNTER 2021-06-16 16:33 | Inpatient (IN) | payer OTHER ==
[~2021-06-16] VITALS: Ht 165.1 cm; Wt 85.4 kg
[2021-06-16] VITALS (16 sets, daily range): BP systolic 80–108; BP diastolic 35–76; TEMP 97.8
[2021-06-16 17:37] LABS: PLATELET COUNT 579 K/uL (152-353)
[2021-06-16 17:49] LABS: POTASSIUM 5.8 mmol/L (3.6-5.2); SODIUM 127 mmol/L (136-145)
[2021-06-16 17:53] LABS: PARTIAL THROMBOPLASTIN TIME 45.2 SECONDS (24.5-33.6)
[2021-06-17] VITALS (41 sets, daily range): BP systolic 75–127; BP diastolic 26–90
[2021-06-17 07:14] LABS: PLATELET COUNT 544 K/uL (152-353)
[2021-06-17 07:34] LABS: POTASSIUM 5.6 mmol/L (3.6-5.2)
[2021-06-18] VITALS (24 sets, daily range): BP systolic 88–132; BP diastolic 39–69
[2021-06-18 07:39] LABS: PLATELET COUNT 408 K/uL (152-353)
[2021-06-18 07:49] LABS: POTASSIUM 4.5 mmol/L (3.6-5.2)
[2021-06-19] VITALS (14 sets, daily range): BP systolic 88–144; BP diastolic 37–82; TEMP 97–98.4; Ht 165.1 cm; Wt 85.4 kg
[2021-06-19 06:07] LABS: PLATELET COUNT 369 K/uL (152-353)
[2021-06-19 06:19] LABS: POTASSIUM 4.2 mmol/L (3.6-5.2)
[2021-06-19] MEDS ORDERED: KP FOLIC ACID1 MG PO (16:11)
[2021-06-19] MEDS ORDERED: PREVAGEN EXTRA20 MG PO (16:14)
[2021-06-19] MEDS ORDERED: ONDA4TAB3 PO (16:23)
[2021-06-19] MEDS ORDERED: OXYC5TAB53 PO (16:24)
[2021-06-19] MEDS ORDERED: MACROBID100 MG PO (16:24)
[2021-06-19] MEDS ORDERED: CYAN10009 IM (16:27)
[2021-06-19] MEDS ORDERED: [UNRECOGNIZED DRUG - CODE] INJ (16:28)
[2021-06-20] VITALS: BP 145/78; TEMP 97.3
[2021-06-20 04:00] VITALS: BP 138/75; TEMP 97.4
[2021-06-20 08:00] VITALS: BP 141/66; TEMP 98.5
[2021-06-20 12:00] VITALS: BP 142/78; TEMP 98.8
[2021-06-20 16:00] VITALS: BP 152/84; TEMP 98.4
[2021-06-20 20:00] VITALS: BP 173/77; TEMP 97.7
[2021-06-21] VITALS: BP 146/80; TEMP 98.7
[2021-06-21 04:00] VITALS: BP 140/79; TEMP 98.6
[2021-06-21 08:00] VITALS: BP 160/78; TEMP 97.9
[2021-06-21 09:10] LABS: PLATELET COUNT 409 K/uL (152-353)
[2021-06-21 09:15] LABS: POTASSIUM 4.2 mmol/L (3.6-5.2)
[2021-06-21 12:00] VITALS: BP 170/78; TEMP 97.8
[2021-06-21 16:00] VITALS: BP 153/90; TEMP 97.9
[2021-06-21 20:00] VITALS: BP 164/86; TEMP 99.4
[2021-06-22] VITALS: BP 141/68; TEMP 98.9
[2021-06-22 04:00] VITALS: BP 161/89; TEMP 98.5
[2021-06-22 07:52] LABS: PLATELET COUNT 326 K/uL (152-353)
[2021-06-22 08:00] VITALS: BP 156/67; TEMP 98.8
[2021-06-22 08:31] LABS: POTASSIUM 4.6 mmol/L (3.6-5.2)
[2021-06-22 12:00] VITALS: BP 158/89; TEMP 98.7
[2021-06-22 16:00] VITALS: BP 159/92; TEMP 97.6
[2021-06-22 20:00] VITALS: BP 169/88; TEMP 99.5
[2021-06-23] VITALS: BP 163/80; TEMP 99.4
[2021-06-23 04:00] VITALS: BP 151/69; TEMP 98.6
[2021-06-23 08:00] VITALS: BP 174/87; TEMP 98.6
[2021-06-23 08:45] LABS: PLATELET COUNT 202 K/uL (152-353)
[2021-06-23 12:00] VITALS: BP 169/86; TEMP 98.5
[2021-06-23 16:00] VITALS: BP 157/90; TEMP 98.4
[2021-06-23 20:00] VITALS: BP 146/86; TEMP 97.8
[2021-06-24] VITALS: BP 144/84; TEMP 98.3
[2021-06-24 04:00] VITALS: BP 110/87; TEMP 97.5
[2021-06-24 08:00] VITALS: BP 165/87; TEMP 98.3
[2021-06-24 12:00] VITALS: BP 162/84; TEMP 98.2
== END 2021-06-24 15:38 | DRG 682 ==
LOC: ED 16:33 → MED/SURG 06-19 09:00
PROVIDERS: Emergency Medicine; Hospitalist; Internal Medicine Endocrinology, Diabetes & Metabolism; ADMIT Internal Medicine; ATTEND Internal Medicine
DX: N17.8 Other acute kidney failure (principal); G92 Toxic encephalopathy; N30.00 Acute cystitis without hematuria; I12.0 Hypertensive chronic kidney disease with stage 5 chronic kidney disease or end stage renal disease; B96.20 Unspecified Escherichia coli [E. coli] as the cause of diseases classified elsewhere; B96.4 Proteus (mirabilis) (morganii) as the cause of diseases classified elsewhere; E87.5 Hyperkalemia; N13.39 Other hydronephrosis; J44.9 Chronic obstructive pulmonary disease, unspecified; E78.49 Other hyperlipidemia; D53.9 Nutritional anemia, unspecified; M81.8 Other osteoporosis without current pathological fracture; G89.4 Chronic pain syndrome; N18.5 Chronic kidney disease, stage 5
CPT/HCPCS: 36415; 80048; 80053; 81000; 82550; 82570; 83605; 83880; 83935; 84300; 84484; 85027; 85610; 85730; 87077; 87086; 87088; 87186; 87635; 93005; 96360; 96361; 96365; 96366; 99284; J0696; J1956; U0003

== ENCOUNTER 2021-07-25 08:44 | Outpatient (CLI) | payer OTHER ==
[~2021-07-25 08:44] MED LIST changes: +CYAN10009 IM; +KP FOLIC ACID1 MG PO; +MACROBID100 MG PO; +ONDA4TAB3 PO; +OXYC5TAB53 PO; +PREVAGEN EXTRA20 MG PO; +[UNRECOGNIZED DRUG - CODE] INJ
== END 2021-07-25 19:07 | disposition home or self-care (01) ==
LOC: LAB 08:44
PROVIDERS: ATTEND Internal Medicine
DX: D64.89 Other specified anemias (principal)
CPT/HCPCS: 85014; 85018

== ENCOUNTER 2021-07-28 09:05 | Inpatient (IN) | payer OTHER ==
[2021-08-02 09:54] LABS: POTASSIUM 3.2 mmol/L (3.6-5.2)
== END 2021-08-28 08:45 | disposition still patient (30) ==
LOC: PAVB 09:05
PROVIDERS: ADMIT Internal Medicine; ATTEND Internal Medicine
DX: N30.00 Acute cystitis without hematuria (principal); B96.20 Unspecified Escherichia coli [E. coli] as the cause of diseases classified elsewhere; B96.4 Proteus (mirabilis) (morganii) as the cause of diseases classified elsewhere; R13.12 Dysphagia, oropharyngeal phase; M62.81 Muscle weakness (generalized); Z74.1 Need for assistance with personal care; R26.2 Difficulty in walking, not elsewhere classified
CPT/HCPCS: 36415; 80053; 81000; 82306; 82570; 82728; 83540; 83550; 83970; 84155; 85014; 85018; 85049; 87077; 87086; 87088; 87186

== ENCOUNTER 2021-08-14 18:39 | Outpatient (CLI) | payer OTHER ==
[2021-08-14 19:20] LABS: POTASSIUM 4.1 mmol/L (3.6-5.2)
== END 2021-08-14 20:09 | disposition home or self-care (01) ==
LOC: LAB 18:39
PROVIDERS: ATTEND Internal Medicine
DX: N18.4 Chronic kidney disease, stage 4 (severe) (principal)
CPT/HCPCS: 36415; 80053; 83735

== ENCOUNTER 2021-08-29 07:28 | Outpatient (CLI) | payer OTHER | END 2021-08-29 21:16 | disposition home or self-care (01) | LOC: LAB 07:28 | PROVIDERS: ATTEND Internal Medicine | DX: D64.9 Anemia, unspecified (principal) | CPT/HCPCS: 85014; 85018 ==

== ENCOUNTER 2021-09-05 08:18 | Outpatient (CLI) | payer OTHER | END 2021-09-05 18:56 | disposition home or self-care (01) | LOC: LAB 08:18 | PROVIDERS: ATTEND Internal Medicine | DX: D64.89 Other specified anemias (principal); D63.1 Anemia in chronic kidney disease; N18.4 Chronic kidney disease, stage 4 (severe) | CPT/HCPCS: 85014; 85018 ==

== ENCOUNTER 2021-09-12 07:19 | Outpatient (CLI) | payer OTHER | END 2021-09-12 20:18 | disposition home or self-care (01) | LOC: LAB 07:19 | PROVIDERS: ATTEND Internal Medicine | DX: N18.4 Chronic kidney disease, stage 4 (severe) (principal); D63.1 Anemia in chronic kidney disease | CPT/HCPCS: 36415; 85014; 85018 ==

== ENCOUNTER 2021-09-14 08:02 | Outpatient (CLI) | payer OTHER | END 2021-09-14 19:15 | disposition home or self-care (01) | LOC: LAB 08:02 | PROVIDERS: ATTEND Internal Medicine | DX: R33.8 Other retention of urine (principal) | CPT/HCPCS: 80048 ==

== ENCOUNTER 2021-09-19 06:59 | Outpatient (CLI) | payer OTHER | END 2021-09-19 18:53 | disposition home or self-care (01) | LOC: LAB 06:59 | PROVIDERS: ATTEND Internal Medicine | DX: D64.89 Other specified anemias (principal); N18.4 Chronic kidney disease, stage 4 (severe); D63.1 Anemia in chronic kidney disease | CPT/HCPCS: 85014; 85018 ==

== ENCOUNTER 2021-09-26 07:01 | Outpatient (CLI) | payer OTHER | END 2021-09-26 19:02 | disposition home or self-care (01) | LOC: LAB 07:01 | PROVIDERS: ATTEND Internal Medicine | DX: D64.89 Other specified anemias (principal) | CPT/HCPCS: 36415; 85014; 85018 ==

== ENCOUNTER 2021-09-27 10:28 | Inpatient (IN) | payer OTHER | END 2021-10-28 08:22 | disposition still patient (30) | LOC: PAVB 10:28 | PROVIDERS: ADMIT Internal Medicine; ATTEND Internal Medicine ==

== ENCOUNTER 2021-09-30 08:26 | Outpatient (CLI) | payer OTHER | END 2021-09-30 19:24 | disposition home or self-care (01) | LOC: LAB 08:26 | PROVIDERS: ATTEND Internal Medicine | DX: E78.49 Other hyperlipidemia (principal) | CPT/HCPCS: 80061 ==

== ENCOUNTER 2021-10-03 07:21 | Outpatient (CLI) | payer OTHER | END 2021-10-03 18:54 | disposition home or self-care (01) | LOC: LAB 07:21 | PROVIDERS: ATTEND Internal Medicine | DX: N18.4 Chronic kidney disease, stage 4 (severe) (principal); D63.1 Anemia in chronic kidney disease | CPT/HCPCS: 36415; 85014; 85018 ==

== ENCOUNTER 2021-10-10 07:36 | Outpatient (CLI) | payer OTHER | END 2021-10-10 19:05 | disposition home or self-care (01) | LOC: LAB 07:36 | PROVIDERS: ATTEND Internal Medicine | DX: D64.89 Other specified anemias (principal) | CPT/HCPCS: 36415; 85014; 85018 ==

== ENCOUNTER 2021-10-17 06:29 | Outpatient (CLI) | payer OTHER | END 2021-10-17 18:48 | disposition home or self-care (01) | LOC: LAB 06:29 | PROVIDERS: ATTEND Internal Medicine | DX: D64.89 Other specified anemias (principal) | CPT/HCPCS: 85014; 85018 ==

== ENCOUNTER 2021-10-24 08:08 | Outpatient (CLI) | payer OTHER | END 2021-10-24 19:00 | disposition home or self-care (01) | LOC: LAB 08:08 | PROVIDERS: ATTEND Internal Medicine | DX: D64.89 Other specified anemias (principal) | CPT/HCPCS: 85014; 85018 ==

== ENCOUNTER 2021-10-28 08:52 | Inpatient (IN) | payer OTHER | END 2021-11-28 09:31 | disposition still patient (30) | LOC: PAVB 08:52 | PROVIDERS: ADMIT Internal Medicine; ATTEND Internal Medicine ==

== ENCOUNTER 2021-10-31 08:11 | Outpatient (CLI) | payer OTHER ==
[2021-10-31 08:46] LABS: PLATELET COUNT 315 K/uL (152-353)
[2021-10-31 08:58] LABS: POTASSIUM 4.7 mmol/L (3.6-5.2)
== END 2021-10-31 19:08 | disposition home or self-care (01) ==
LOC: LAB 08:11
PROVIDERS: ATTEND Internal Medicine
DX: N18.4 Chronic kidney disease, stage 4 (severe) (principal); D64.89 Other specified anemias; K76.89 Other specified diseases of liver
CPT/HCPCS: 80053; 84443; 84550; 85027

== ENCOUNTER 2021-11-07 08:03 | Outpatient (CLI) | payer OTHER | END 2021-11-07 19:09 | disposition home or self-care (01) | LOC: LAB 08:03 | PROVIDERS: ATTEND Internal Medicine | DX: D64.9 Anemia, unspecified (principal) | CPT/HCPCS: 36415; 85014; 85018 ==

== ENCOUNTER 2021-11-14 06:55 | Outpatient (CLI) | payer OTHER | END 2021-11-14 18:52 | disposition home or self-care (01) | LOC: LAB 06:55 | PROVIDERS: ATTEND Internal Medicine | DX: D64.89 Other specified anemias (principal) | CPT/HCPCS: 85014; 85018 ==

== ENCOUNTER 2021-11-21 07:33 | Outpatient (CLI) | payer OTHER | END 2021-11-21 18:54 | disposition home or self-care (01) | LOC: LAB 07:33 | PROVIDERS: ATTEND Internal Medicine | DX: D64.89 Other specified anemias (principal) | CPT/HCPCS: 36415; 85014; 85018 ==

== ENCOUNTER 2021-11-28 07:09 | Outpatient (CLI) | payer OTHER | END 2021-11-28 19:20 | disposition home or self-care (01) | LOC: LAB 07:09 | PROVIDERS: ATTEND Internal Medicine | DX: D64.89 Other specified anemias (principal) | CPT/HCPCS: 85014; 85018 ==

== ENCOUNTER 2021-11-28 15:00 | Inpatient (IN) | payer OTHER | END 2021-12-26 08:58 | disposition still patient (30) | LOC: PAVB 15:00 | PROVIDERS: ADMIT Internal Medicine; ATTEND Internal Medicine ==

== ENCOUNTER 2021-12-05 05:48 | Outpatient (CLI) | payer OTHER | END 2021-12-05 19:15 | disposition home or self-care (01) | LOC: LAB 05:48 | PROVIDERS: ATTEND Internal Medicine | DX: N18.6 End stage renal disease (principal); D63.1 Anemia in chronic kidney disease | CPT/HCPCS: 85014; 85018 ==

== ENCOUNTER 2021-12-06 11:24 | Outpatient (CLI) | payer OTHER | END 2021-12-06 18:59 | disposition home or self-care (01) | LOC: RAD 11:24 | PROVIDERS: ATTEND Internal Medicine | DX: M79.671 Pain in right foot (principal) ==

== ENCOUNTER 2021-12-07 06:07 | Outpatient (CLI) | payer OTHER ==
[2021-12-07 08:14] LABS: POTASSIUM 3.8 mmol/L (3.6-5.2)
== END 2021-12-07 19:00 | disposition home or self-care (01) ==
LOC: LAB 06:07
PROVIDERS: ATTEND Internal Medicine
DX: N18.6 End stage renal disease (principal); D63.1 Anemia in chronic kidney disease; R33.8 Other retention of urine
CPT/HCPCS: 80053; 81000; 82306; 82570; 83970; 84155; 85018; 85049; 87077; 87086; 87088; 87186

== ENCOUNTER 2021-12-12 07:06 | Outpatient (CLI) | payer OTHER | END 2021-12-12 18:49 | disposition home or self-care (01) | LOC: LAB 07:06 | PROVIDERS: ATTEND Internal Medicine | DX: N18.6 End stage renal disease (principal); D63.1 Anemia in chronic kidney disease | CPT/HCPCS: 85014; 85018 ==

== ENCOUNTER 2021-12-19 06:58 | Outpatient (CLI) | payer OTHER | END 2021-12-19 18:50 | disposition home or self-care (01) | LOC: LAB 06:58 | PROVIDERS: ATTEND Internal Medicine | DX: D64.89 Other specified anemias (principal) | CPT/HCPCS: 85014; 85018 ==

== ENCOUNTER 2021-12-26 07:19 | Outpatient (CLI) | payer OTHER | END 2021-12-26 19:00 | disposition home or self-care (01) | LOC: LAB 07:19 | PROVIDERS: ATTEND Internal Medicine | DX: N18.6 End stage renal disease (principal); D63.1 Anemia in chronic kidney disease | CPT/HCPCS: 85014; 85018 ==

== ENCOUNTER 2021-12-26 12:30 | Inpatient (IN) | payer OTHER | END 2022-01-26 08:42 | disposition still patient (30) | LOC: PAVB 12:30 | PROVIDERS: ADMIT Internal Medicine; ATTEND Internal Medicine ==

== ENCOUNTER 2022-01-02 07:43 | Outpatient (CLI) | payer OTHER | END 2022-01-02 18:54 | disposition home or self-care (01) | LOC: LAB 07:43 | PROVIDERS: ATTEND Internal Medicine | DX: D64.89 Other specified anemias (principal) | CPT/HCPCS: 85014; 85018 ==

== ENCOUNTER 2022-01-09 08:21 | Outpatient (CLI) | payer OTHER | END 2022-01-09 18:59 | disposition home or self-care (01) | LOC: LAB 08:21 | PROVIDERS: ATTEND Internal Medicine | DX: D64.89 Other specified anemias (principal) | CPT/HCPCS: 85014; 85018 ==

== ENCOUNTER 2022-01-11 07:01 | Outpatient (CLI) | payer OTHER ==
[2022-01-11 08:27] LABS: POTASSIUM 4.7 mmol/L (3.6-5.2)
== END 2022-01-11 20:37 | disposition home or self-care (01) ==
LOC: LAB 07:01
PROVIDERS: ATTEND Internal Medicine
DX: K70.40 Alcoholic hepatic failure without coma (principal)
CPT/HCPCS: 80053; 83735; 84100; 84550

== ENCOUNTER 2022-01-16 07:33 | Outpatient (CLI) | payer OTHER | END 2022-01-16 18:53 | disposition home or self-care (01) | LOC: LAB 07:33 | PROVIDERS: ATTEND Internal Medicine | DX: D64.89 Other specified anemias (principal); D63.1 Anemia in chronic kidney disease | CPT/HCPCS: 85014; 85018 ==

== ENCOUNTER 2022-01-23 07:39 | Outpatient (CLI) | payer OTHER | END 2022-01-23 18:54 | disposition home or self-care (01) | LOC: LAB 07:39 | PROVIDERS: ATTEND Internal Medicine | DX: D64.89 Other specified anemias (principal) | CPT/HCPCS: 85014; 85018 ==

== ENCOUNTER 2022-01-24 12:59 | Outpatient (CLI) | payer OTHER | END 2022-01-24 19:00 | disposition home or self-care (01) | LOC: LAB 12:59 | PROVIDERS: ATTEND Internal Medicine | DX: R41.82 Altered mental status, unspecified (principal); Z87.440 Personal history of urinary (tract) infections; Z09 Encounter for follow-up examination after completed treatment for conditions other than malignant neoplasm | CPT/HCPCS: 81000; 87077; 87086; 87088; 87185; 87186 ==

== ENCOUNTER 2022-01-26 09:37 | Inpatient (IN) | payer OTHER | END 2022-02-25 10:17 | disposition still patient (30) | LOC: PAVB 09:37 | PROVIDERS: ADMIT Internal Medicine; ATTEND Internal Medicine ==

== ENCOUNTER 2022-01-30 07:49 | Outpatient (CLI) | payer OTHER | END 2022-01-30 18:56 | disposition home or self-care (01) | LOC: LAB 07:49 | PROVIDERS: ATTEND Internal Medicine | DX: E11.9 Type 2 diabetes mellitus without complications (principal); D64.89 Other specified anemias | CPT/HCPCS: 83036; 85014; 85018 ==

== ENCOUNTER 2022-02-06 07:27 | Outpatient (CLI) | payer OTHER | END 2022-02-06 19:38 | disposition home or self-care (01) | LOC: LAB 07:27 | PROVIDERS: ATTEND Internal Medicine | DX: D64.89 Other specified anemias (principal) | CPT/HCPCS: 85014; 85018 ==

== ENCOUNTER 2022-02-13 07:10 | Outpatient (CLI) | payer OTHER | END 2022-02-13 18:50 | disposition home or self-care (01) | LOC: LAB 07:10 | PROVIDERS: ATTEND Internal Medicine | DX: D64.89 Other specified anemias (principal) | CPT/HCPCS: 85014; 85018 ==

== ENCOUNTER 2022-02-21 06:51 | Outpatient (CLI) | payer OTHER | END 2022-02-21 19:15 | disposition home or self-care (01) | LOC: LAB 06:51 | PROVIDERS: ATTEND Internal Medicine | DX: D64.89 Other specified anemias (principal) | CPT/HCPCS: 85014; 85018 ==

== ENCOUNTER 2022-02-25 12:55 | Inpatient (IN) | payer OTHER | END 2022-03-28 09:36 | disposition still patient (30) | LOC: PAVB 12:55 | PROVIDERS: ADMIT Internal Medicine; ATTEND Internal Medicine ==

== ENCOUNTER 2022-02-27 09:47 | Outpatient (CLI) | payer OTHER | END 2022-02-27 19:01 | disposition home or self-care (01) | LOC: LAB 09:47 | PROVIDERS: ATTEND Internal Medicine | DX: N18.4 Chronic kidney disease, stage 4 (severe) (principal); D64.89 Other specified anemias; D63.1 Anemia in chronic kidney disease | CPT/HCPCS: 85014; 85018 ==

== ENCOUNTER 2022-03-06 06:03 | Outpatient (CLI) | payer OTHER | END 2022-03-06 18:54 | disposition home or self-care (01) | LOC: LAB 06:03 | PROVIDERS: ATTEND Internal Medicine | DX: D64.89 Other specified anemias (principal) | CPT/HCPCS: 85014; 85018 ==

== ENCOUNTER 2022-03-13 06:20 | Outpatient (CLI) | payer OTHER | END 2022-03-13 18:59 | disposition home or self-care (01) | LOC: LAB 06:20 | PROVIDERS: ATTEND Internal Medicine | DX: N18.4 Chronic kidney disease, stage 4 (severe) (principal); D63.1 Anemia in chronic kidney disease | CPT/HCPCS: 85014; 85018 ==

== ENCOUNTER 2022-03-20 06:11 | Outpatient (CLI) | payer OTHER | END 2022-03-20 19:25 | disposition home or self-care (01) | LOC: LAB 06:11 | PROVIDERS: ATTEND Internal Medicine | DX: N18.4 Chronic kidney disease, stage 4 (severe) (principal); D63.1 Anemia in chronic kidney disease | CPT/HCPCS: 85014; 85018 ==

== ENCOUNTER 2022-03-27 06:05 | Outpatient (CLI) | payer OTHER | END 2022-03-27 19:25 | disposition home or self-care (01) | LOC: LAB 06:05 | PROVIDERS: ATTEND Internal Medicine | DX: D64.89 Other specified anemias (principal) | CPT/HCPCS: 85014; 85018 ==

== ENCOUNTER 2022-03-28 13:35 | Inpatient (IN) | payer OTHER | END 2022-04-27 09:05 | disposition still patient (30) | LOC: PAVB 13:35 | PROVIDERS: ADMIT Internal Medicine; ATTEND Internal Medicine ==

== ENCOUNTER 2022-04-03 06:21 | Outpatient (CLI) | payer OTHER | END 2022-04-03 18:48 | disposition home or self-care (01) | LOC: LAB 06:21 | PROVIDERS: ATTEND Internal Medicine | DX: D64.89 Other specified anemias (principal) | CPT/HCPCS: 85014; 85018 ==

== ENCOUNTER 2022-04-10 06:07 | Outpatient (CLI) | payer OTHER | END 2022-04-10 18:55 | disposition home or self-care (01) | LOC: LAB 06:07 | PROVIDERS: ATTEND Internal Medicine | DX: N18.4 Chronic kidney disease, stage 4 (severe) (principal); D63.1 Anemia in chronic kidney disease | CPT/HCPCS: 85014; 85018 ==

== ENCOUNTER 2022-04-13 04:13 | Outpatient (CLI) | payer OTHER ==
[2022-04-13 06:08] LABS: POTASSIUM 4.7 mmol/L (3.6-5.2)
== END 2022-04-13 21:07 | disposition home or self-care (01) ==
LOC: LAB 04:13
PROVIDERS: ATTEND Internal Medicine
DX: K70.40 Alcoholic hepatic failure without coma (principal); I50.9 Heart failure, unspecified; N18.6 End stage renal disease; I12.0 Hypertensive chronic kidney disease with stage 5 chronic kidney disease or end stage renal disease; Z79.899 Other long term (current) drug therapy
CPT/HCPCS: 80053; 81000; 82306; 82570; 83036; 83735; 83970; 84100; 84156; 84550; 87077; 87086; 87088; 87186

== ENCOUNTER 2022-04-17 05:09 | Outpatient (CLI) | payer OTHER | END 2022-04-17 19:09 | disposition home or self-care (01) | LOC: LAB 05:09 | PROVIDERS: ATTEND Internal Medicine | DX: N18.6 End stage renal disease (principal); D63.1 Anemia in chronic kidney disease | CPT/HCPCS: 36415; 85014; 85018 ==

== ENCOUNTER 2022-04-24 07:05 | Outpatient (CLI) | payer OTHER | END 2022-04-24 20:34 | disposition home or self-care (01) | LOC: LAB 07:05 | PROVIDERS: ATTEND Internal Medicine | DX: N18.9 Chronic kidney disease, unspecified (principal); D63.1 Anemia in chronic kidney disease | CPT/HCPCS: 85014; 85018 ==

== ENCOUNTER 2022-04-27 11:10 | Inpatient (IN) | payer OTHER | END 2022-05-28 09:16 | disposition still patient (30) | LOC: PAVB 11:10 | PROVIDERS: ADMIT Internal Medicine; ATTEND Internal Medicine ==

== ENCOUNTER 2022-05-01 07:03 | Outpatient (CLI) | payer OTHER ==
[2022-05-01 07:43] LABS: PLATELET COUNT 263 K/uL (152-353)
[2022-05-01 08:13] LABS: POTASSIUM 4.8 mmol/L (3.6-5.2)
== END 2022-05-01 18:49 | disposition home or self-care (01) ==
LOC: LAB 07:03
PROVIDERS: ATTEND Internal Medicine
DX: N18.4 Chronic kidney disease, stage 4 (severe) (principal); D63.1 Anemia in chronic kidney disease; E11.9 Type 2 diabetes mellitus without complications
CPT/HCPCS: 80053; 83036; 84443; 84550; 85027

== ENCOUNTER 2022-05-08 06:08 | Outpatient (CLI) | payer OTHER | END 2022-05-08 18:48 | disposition home or self-care (01) | LOC: LAB 06:08 | PROVIDERS: ATTEND Internal Medicine | DX: N18.9 Chronic kidney disease, unspecified (principal); D63.1 Anemia in chronic kidney disease | CPT/HCPCS: 85014; 85018 ==

== ENCOUNTER 2022-05-11 01:38 | Outpatient (CLI) | payer OTHER | END 2022-05-11 20:49 | disposition home or self-care (01) | LOC: LAB 01:38 | PROVIDERS: ATTEND Internal Medicine | DX: N39.0 Urinary tract infection, site not specified (principal) | CPT/HCPCS: 81000; 87077; 87086; 87088; 87186 ==

== ENCOUNTER 2022-05-15 06:36 | Outpatient (CLI) | payer OTHER | END 2022-05-15 18:50 | disposition home or self-care (01) | LOC: LAB 06:36 | PROVIDERS: ATTEND Internal Medicine | DX: N18.9 Chronic kidney disease, unspecified (principal); D63.1 Anemia in chronic kidney disease | CPT/HCPCS: 85014; 85018 ==

== ENCOUNTER 2022-05-22 08:06 | Outpatient (CLI) | payer OTHER | END 2022-05-22 19:08 | disposition home or self-care (01) | LOC: LAB 08:06 | PROVIDERS: ATTEND Internal Medicine | DX: D64.89 Other specified anemias (principal) | CPT/HCPCS: 85014; 85018 ==

== ENCOUNTER 2022-05-28 11:37 | Inpatient (IN) | payer OTHER | END 2022-06-28 09:02 | disposition still patient (30) | LOC: PAVB 11:37 | PROVIDERS: ADMIT Internal Medicine; ATTEND Internal Medicine ==

== ENCOUNTER 2022-05-29 08:59 | Outpatient (CLI) | payer OTHER | END 2022-05-29 19:02 | disposition home or self-care (01) | LOC: LAB 08:59 | PROVIDERS: ATTEND Internal Medicine | DX: N18.6 End stage renal disease (principal); D63.1 Anemia in chronic kidney disease | CPT/HCPCS: 85014; 85018 ==

== ENCOUNTER 2022-06-05 07:36 | Outpatient (CLI) | payer OTHER | END 2022-06-05 19:51 | disposition home or self-care (01) | LOC: LAB 07:36 | PROVIDERS: ATTEND Family Medicine | DX: D64.89 Other specified anemias (principal) | CPT/HCPCS: 85014; 85018 ==

== ENCOUNTER 2022-06-12 07:44 | Outpatient (CLI) | payer OTHER | END 2022-06-12 20:54 | disposition home or self-care (01) | LOC: LAB 07:44 | PROVIDERS: ATTEND Family Medicine | DX: D64.89 Other specified anemias (principal) | CPT/HCPCS: 85014; 85018 ==

== ENCOUNTER 2022-06-19 14:10 | Outpatient (CLI) | payer OTHER | END 2022-06-19 19:03 | disposition home or self-care (01) | LOC: LAB 14:10 | PROVIDERS: ATTEND Family Medicine | DX: D64.89 Other specified anemias (principal) | CPT/HCPCS: 36415; 85014; 85018 ==

== ENCOUNTER 2022-06-26 07:34 | Outpatient (CLI) | payer OTHER | END 2022-06-26 18:57 | disposition home or self-care (01) | LOC: LAB 07:34 | PROVIDERS: ATTEND Family Medicine | DX: D64.89 Other specified anemias (principal) | CPT/HCPCS: 85014; 85018 ==

== ENCOUNTER 2022-06-28 11:49 | Inpatient (IN) | payer OTHER | END 2022-07-28 10:25 | disposition still patient (30) | LOC: PAVB 11:49 | PROVIDERS: ADMIT Family Medicine; ATTEND Family Medicine ==

== ENCOUNTER 2022-07-02 07:27 | Outpatient (CLI) | payer OTHER | END 2022-07-02 18:52 | disposition home or self-care (01) | LOC: LAB 07:27 | PROVIDERS: ATTEND Family Medicine | DX: D64.89 Other specified anemias (principal) | CPT/HCPCS: 36415; 82306; 82310 ==

== ENCOUNTER 2022-07-03 06:22 | Outpatient (CLI) | payer OTHER | END 2022-07-03 18:45 | disposition home or self-care (01) | LOC: LAB 06:22 | PROVIDERS: ATTEND Family Medicine | DX: D64.89 Other specified anemias (principal); D63.1 Anemia in chronic kidney disease; N18.6 End stage renal disease | CPT/HCPCS: 85014; 85018 ==

== ENCOUNTER 2022-07-10 06:33 | Outpatient (CLI) | payer OTHER | END 2022-07-10 19:26 | disposition home or self-care (01) | LOC: LAB 06:33 | PROVIDERS: ATTEND Family Medicine | DX: D64.89 Other specified anemias (principal) | CPT/HCPCS: 85014; 85018 ==

== ENCOUNTER 2022-07-17 07:42 | Outpatient (CLI) | payer OTHER | END 2022-07-17 19:13 | disposition home or self-care (01) | LOC: LAB 07:42 | PROVIDERS: ATTEND Family Medicine | DX: D64.89 Other specified anemias (principal) | CPT/HCPCS: 85014; 85018 ==

== ENCOUNTER 2022-07-24 06:47 | Outpatient (CLI) | payer OTHER | END 2022-07-24 20:53 | disposition home or self-care (01) | LOC: LAB 06:47 | PROVIDERS: ATTEND Family Medicine | DX: N18.9 Chronic kidney disease, unspecified (principal); D63.1 Anemia in chronic kidney disease | CPT/HCPCS: 85014; 85018 ==

== ENCOUNTER 2022-07-26 08:10 | Outpatient (CLI) | payer OTHER | END 2022-07-26 19:22 | disposition home or self-care (01) | LOC: LAB 08:10 | PROVIDERS: ATTEND Family Medicine | DX: R10.2 Pelvic and perineal pain (principal) | CPT/HCPCS: 81000; 87077; 87086; 87088; 87186 ==

== ENCOUNTER 2022-07-28 12:34 | Inpatient (IN) | payer OTHER | END 2022-08-28 14:46 | disposition still patient (30) | LOC: PAVB 12:34 | PROVIDERS: ADMIT Family Medicine; ATTEND Family Medicine ==

== ENCOUNTER → 2022-07-31 | Outpatient (CLI) | payer OTHER | LOC: LAB 07:02 | PROVIDERS: ATTEND Family Medicine | DX: D64.9 Anemia, unspecified (principal) | CPT/HCPCS: 85014; 85018 ==

== ENCOUNTER 2022-08-07 06:41 | Outpatient (CLI) | payer OTHER | END 2022-08-07 19:28 | disposition home or self-care (01) | LOC: LAB 06:41 | PROVIDERS: ATTEND Family Medicine | DX: D64.89 Other specified anemias (principal) | CPT/HCPCS: 85014; 85018 ==

== ENCOUNTER 2022-08-14 05:53 | Outpatient (CLI) | payer OTHER | END 2022-08-14 20:27 | disposition home or self-care (01) | LOC: LAB 05:53 | PROVIDERS: ATTEND Family Medicine | DX: D64.89 Other specified anemias (principal) | CPT/HCPCS: 85014; 85018 ==

== ENCOUNTER 2022-08-15 13:59 | Outpatient (CLI) | payer OTHER | END 2022-08-15 21:21 | disposition home or self-care (01) | LOC: US 13:59 | PROVIDERS: ATTEND Family Medicine | DX: M79.605 Pain in left leg (principal); M79.604 Pain in right leg ==

== ENCOUNTER 2022-08-21 07:32 | Outpatient (CLI) | payer OTHER | END 2022-08-21 18:53 | disposition home or self-care (01) | LOC: LAB 07:32 | PROVIDERS: ATTEND Family Medicine | DX: D64.89 Other specified anemias (principal) | CPT/HCPCS: 85014; 85018 ==

== ENCOUNTER 2022-08-28 15:29 | Inpatient (IN) | payer OTHER | END 2022-09-27 15:05 | disposition still patient (30) | LOC: PAVB 15:29 | PROVIDERS: ADMIT Family Medicine; ATTEND Family Medicine ==

== ENCOUNTER → 2022-08-28 | Outpatient (CLI) | payer OTHER | LOC: LAB 13:55 | PROVIDERS: ATTEND Family Medicine | DX: D64.89 Other specified anemias (principal) | CPT/HCPCS: 85014; 85018 ==

== ENCOUNTER 2022-09-04 07:21 | Outpatient (CLI) | payer OTHER | END 2022-09-04 19:12 | disposition home or self-care (01) | LOC: LAB 07:21 | PROVIDERS: ATTEND Family Medicine | DX: D64.89 Other specified anemias (principal) | CPT/HCPCS: 36415; 85014; 85018 ==

== ENCOUNTER 2022-09-07 05:42 | Outpatient (CLI) | payer OTHER ==
[2022-09-07 09:19] LABS: PLATELET COUNT 255 K/uL (152-353)
[2022-09-07 09:27] LABS: POTASSIUM 4.9 mmol/L (3.6-5.2)
== END 2022-09-07 19:28 | disposition home or self-care (01) ==
LOC: LAB 05:42
PROVIDERS: ATTEND Family Medicine
DX: N31.8 Other neuromuscular dysfunction of bladder (principal); N13.39 Other hydronephrosis; N18.4 Chronic kidney disease, stage 4 (severe); R82.998 Other abnormal findings in urine
CPT/HCPCS: 80053; 81000; 82306; 82570; 83735; 83970; 84100; 84156; 84550; 85027; 87077; 87086; 87088; 87186

== ENCOUNTER 2022-09-11 05:40 | Outpatient (CLI) | payer OTHER | END 2022-09-11 19:52 | disposition home or self-care (01) | LOC: LAB 05:40 | PROVIDERS: ATTEND Family Medicine | DX: N18.4 Chronic kidney disease, stage 4 (severe) (principal); D63.1 Anemia in chronic kidney disease | CPT/HCPCS: 85014; 85018 ==

== ENCOUNTER 2022-09-18 06:21 | Outpatient (CLI) | payer OTHER | END 2022-09-18 20:09 | disposition home or self-care (01) | LOC: LAB 06:21 | PROVIDERS: ATTEND Family Medicine | DX: N18.6 End stage renal disease (principal); D63.1 Anemia in chronic kidney disease | CPT/HCPCS: 85014; 85018 ==

== ENCOUNTER 2022-09-25 06:26 | Outpatient (CLI) | payer OTHER | END 2022-09-25 20:55 | disposition home or self-care (01) | LOC: LAB 06:26 | PROVIDERS: ATTEND Family Medicine | DX: N18.4 Chronic kidney disease, stage 4 (severe) (principal); D63.1 Anemia in chronic kidney disease | CPT/HCPCS: 85014; 85018 ==

== ENCOUNTER 2022-09-27 17:10 | Inpatient (IN) | payer OTHER | END 2022-10-28 10:37 | disposition still patient (30) | LOC: PAVB 17:10 | PROVIDERS: ADMIT Family Medicine; ATTEND Family Medicine ==

== ENCOUNTER 2022-10-01 06:19 | Outpatient (CLI) | payer OTHER | END 2022-10-01 19:33 | disposition home or self-care (01) | LOC: LAB 06:19 | PROVIDERS: ATTEND Family Medicine | DX: I10 Essential (primary) hypertension (principal) | CPT/HCPCS: 80061 ==

== ENCOUNTER 2022-10-02 06:58 | Outpatient (CLI) | payer OTHER | END 2022-10-02 19:34 | disposition home or self-care (01) | LOC: LAB 06:58 | PROVIDERS: ATTEND Family Medicine | DX: N18.9 Chronic kidney disease, unspecified (principal); D63.1 Anemia in chronic kidney disease | CPT/HCPCS: 85014; 85018 ==

== ENCOUNTER 2022-10-09 05:20 | Outpatient (CLI) | payer OTHER | END 2022-10-09 19:17 | disposition home or self-care (01) | LOC: LAB 05:20 | PROVIDERS: ATTEND Family Medicine | DX: D64.89 Other specified anemias (principal) | CPT/HCPCS: 85014; 85018 ==

== ENCOUNTER 2022-10-16 04:42 | Outpatient (CLI) | payer OTHER | END 2022-10-16 19:00 | disposition home or self-care (01) | LOC: LAB 04:42 | PROVIDERS: ATTEND Family Medicine | DX: N18.9 Chronic kidney disease, unspecified (principal); D63.1 Anemia in chronic kidney disease; N95.8 Other specified menopausal and perimenopausal disorders | CPT/HCPCS: 36415; 85014; 85018 ==

== ENCOUNTER 2022-10-23 05:12 | Outpatient (CLI) | payer OTHER | END 2022-10-23 22:17 | disposition home or self-care (01) | LOC: LAB 05:12 | PROVIDERS: ATTEND Family Medicine | DX: D64.89 Other specified anemias (principal) | CPT/HCPCS: 36415; 85014; 85018 ==

== ENCOUNTER 2022-10-28 12:13 | Inpatient (IN) | payer OTHER | END 2022-11-28 08:43 | disposition still patient (30) | LOC: PAVB 12:13 | PROVIDERS: ADMIT Family Medicine; ATTEND Family Medicine ==

== ENCOUNTER 2022-10-30 07:46 | Outpatient (CLI) | payer OTHER ==
[2022-10-30 08:27] LABS: PLATELET COUNT 276 K/uL (152-353)
== END 2022-10-30 18:56 | disposition home or self-care (01) ==
LOC: LAB 07:46
PROVIDERS: ATTEND Family Medicine
DX: K76.89 Other specified diseases of liver (principal); K74.60 Unspecified cirrhosis of liver; E03.8 Other specified hypothyroidism; K70.10 Alcoholic hepatitis without ascites; E11.9 Type 2 diabetes mellitus without complications; D64.89 Other specified anemias; N18.4 Chronic kidney disease, stage 4 (severe)
CPT/HCPCS: 80053; 83036; 84443; 84550; 85027

== ENCOUNTER 2022-11-06 05:38 | Outpatient (CLI) | payer OTHER | END 2022-11-06 20:31 | disposition home or self-care (01) | LOC: LAB 05:38 | PROVIDERS: ATTEND Family Medicine | DX: N18.9 Chronic kidney disease, unspecified (principal); D63.1 Anemia in chronic kidney disease | CPT/HCPCS: 85014; 85018 ==

== ENCOUNTER 2022-11-13 06:36 | Outpatient (CLI) | payer OTHER | END 2022-11-13 19:13 | disposition home or self-care (01) | LOC: LAB 06:36 | PROVIDERS: ATTEND Family Medicine | DX: N18.9 Chronic kidney disease, unspecified (principal); D63.1 Anemia in chronic kidney disease | CPT/HCPCS: 36415; 85014; 85018 ==

== ENCOUNTER 2022-11-20 06:37 | Outpatient (CLI) | payer OTHER | END 2022-11-20 19:25 | disposition home or self-care (01) | LOC: LAB 06:37 | PROVIDERS: ATTEND Family Medicine | DX: D64.89 Other specified anemias (principal); D63.1 Anemia in chronic kidney disease; N18.9 Chronic kidney disease, unspecified | CPT/HCPCS: 85014; 85018 ==

== ENCOUNTER 2022-11-27 07:51 | Outpatient (CLI) | payer OTHER | END 2022-11-27 19:17 | disposition home or self-care (01) | LOC: LAB 07:51 | PROVIDERS: ATTEND Family Medicine | DX: D64.89 Other specified anemias (principal); D63.1 Anemia in chronic kidney disease; N18.9 Chronic kidney disease, unspecified | CPT/HCPCS: 85014; 85018 ==

== ENCOUNTER 2022-11-28 10:48 | Inpatient (IN) | payer OTHER | END 2022-12-26 12:02 | disposition still patient (30) | LOC: PAVB 10:48 | PROVIDERS: ADMIT Family Medicine; ATTEND Family Medicine ==

== ENCOUNTER 2022-12-04 09:01 | Outpatient (CLI) | payer OTHER | END 2022-12-04 23:07 | disposition home or self-care (01) | LOC: LAB 09:01 | PROVIDERS: ATTEND Family Medicine | DX: D64.89 Other specified anemias (principal) | CPT/HCPCS: 36415; 85014; 85018 ==

== ENCOUNTER 2022-12-11 04:53 | Outpatient (CLI) | payer OTHER | END 2022-12-11 19:34 | disposition home or self-care (01) | LOC: LAB 04:53 | PROVIDERS: ATTEND Family Medicine | DX: N18.6 End stage renal disease (principal); D63.1 Anemia in chronic kidney disease | CPT/HCPCS: 85014; 85018 ==

== ENCOUNTER 2022-12-18 07:26 | Outpatient (CLI) | payer OTHER | END 2022-12-18 21:49 | disposition home or self-care (01) | LOC: LAB 07:26 | PROVIDERS: ATTEND Family Medicine | DX: N18.9 Chronic kidney disease, unspecified (principal); D63.1 Anemia in chronic kidney disease; D64.89 Other specified anemias | CPT/HCPCS: 36415; 85014; 85018 ==

== ENCOUNTER 2022-12-25 05:51 | Outpatient (CLI) | payer OTHER | END 2022-12-25 18:54 | disposition home or self-care (01) | LOC: LAB 05:51 | PROVIDERS: ATTEND Family Medicine | DX: N18.9 Chronic kidney disease, unspecified (principal); D63.1 Anemia in chronic kidney disease | CPT/HCPCS: 85014; 85018 ==

== ENCOUNTER 2022-12-26 12:43 | Inpatient (IN) | payer OTHER | END 2023-01-26 11:24 | disposition still patient (30) | LOC: PAVB 12:43 | PROVIDERS: ADMIT Family Medicine; ATTEND Family Medicine ==

== ENCOUNTER 2023-01-01 13:05 | Outpatient (CLI) | payer OTHER | END 2023-01-01 20:42 | disposition home or self-care (01) | LOC: LAB 13:05 | PROVIDERS: ATTEND Family Medicine | DX: D64.89 Other specified anemias (principal); N18.4 Chronic kidney disease, stage 4 (severe); N17.9 Acute kidney failure, unspecified | CPT/HCPCS: 82306; 82310; 85014; 85018 ==

== ENCOUNTER 2023-01-08 05:51 | Outpatient (CLI) | payer OTHER | END 2023-01-08 19:21 | disposition home or self-care (01) | LOC: LAB 05:51 | PROVIDERS: ATTEND Family Medicine | DX: N18.4 Chronic kidney disease, stage 4 (severe) (principal); D63.1 Anemia in chronic kidney disease | CPT/HCPCS: 85014; 85018 ==

== ENCOUNTER 2023-01-09 14:16 | Outpatient (CLI) | payer OTHER | END 2023-01-09 19:43 | disposition home or self-care (01) | LOC: CT 14:16 | PROVIDERS: ATTEND Family Medicine | DX: R33.8 Other retention of urine (principal); N13.39 Other hydronephrosis ==

== ENCOUNTER 2023-01-15 06:05 | Outpatient (CLI) | payer OTHER | END 2023-01-15 19:04 | disposition home or self-care (01) | LOC: LAB 06:05 | PROVIDERS: ATTEND Family Medicine | DX: N18.4 Chronic kidney disease, stage 4 (severe) (principal); D63.1 Anemia in chronic kidney disease | CPT/HCPCS: 85014; 85018 ==

== ENCOUNTER 2023-01-17 17:31 | Outpatient (CLI) | payer OTHER ==
[2023-01-17 18:09] LABS: PLATELET COUNT 228 K/uL (152-353)
== END 2023-01-17 20:59 | disposition home or self-care (01) ==
LOC: LAB 17:31
PROVIDERS: ATTEND Family Medicine
DX: R41.82 Altered mental status, unspecified (principal)
CPT/HCPCS: 81000; 85027; 87077; 87086; 87088; 87186

== ENCOUNTER 2023-01-22 09:01 | Outpatient (CLI) | payer OTHER | END 2023-01-22 19:18 | disposition home or self-care (01) | LOC: LAB 09:01 | PROVIDERS: ATTEND Family Medicine | DX: D64.89 Other specified anemias (principal); D63.1 Anemia in chronic kidney disease; N18.4 Chronic kidney disease, stage 4 (severe) | CPT/HCPCS: 85014; 85018 ==

== ENCOUNTER 2023-01-26 11:48 | Inpatient (IN) | payer OTHER | END 2023-02-25 10:48 | disposition still patient (30) | LOC: PAVB 11:48 | PROVIDERS: ADMIT Family Medicine; ATTEND Family Medicine ==

== ENCOUNTER 2023-01-29 09:43 | Outpatient (CLI) | payer OTHER | END 2023-01-29 22:08 | disposition home or self-care (01) | LOC: LAB 09:43 | PROVIDERS: ATTEND Family Medicine | DX: N18.9 Chronic kidney disease, unspecified (principal); D63.1 Anemia in chronic kidney disease; E11.21 Type 2 diabetes mellitus with diabetic nephropathy; D64.89 Other specified anemias | CPT/HCPCS: 83036; 85014; 85018 ==

== ENCOUNTER 2023-02-05 07:51 | Outpatient (CLI) | payer OTHER | END 2023-02-05 19:11 | disposition home or self-care (01) | LOC: LAB 07:51 | PROVIDERS: ATTEND Family Medicine | DX: N18.4 Chronic kidney disease, stage 4 (severe) (principal); D63.1 Anemia in chronic kidney disease | CPT/HCPCS: 85014; 85018 ==

== ENCOUNTER 2023-02-12 08:25 | Outpatient (CLI) | payer OTHER | END 2023-02-12 20:51 | disposition home or self-care (01) | LOC: LAB 08:25 | PROVIDERS: ATTEND Family Medicine | DX: D64.89 Other specified anemias (principal); D63.1 Anemia in chronic kidney disease; N18.4 Chronic kidney disease, stage 4 (severe) | CPT/HCPCS: 85014; 85018 ==

== ENCOUNTER 2023-02-15 09:04 | Outpatient (CLI) | payer OTHER ==
[2023-02-15 09:25] LABS: PLATELET COUNT 211 K/uL (152-353)
[2023-02-15 09:59] LABS: POTASSIUM 4.7 mmol/L (3.6-5.2)
== END 2023-02-15 19:15 | disposition home or self-care (01) ==
LOC: LAB 09:04
PROVIDERS: ATTEND Family Medicine
DX: K70.40 Alcoholic hepatic failure without coma (principal); N18.4 Chronic kidney disease, stage 4 (severe); D63.1 Anemia in chronic kidney disease; R33.8 Other retention of urine
CPT/HCPCS: 80053; 81000; 82306; 82570; 83735; 83970; 84100; 84156; 84550; 85027; 87077; 87086; 87088; 87186

== ENCOUNTER 2023-02-17 04:28 | Outpatient (CLI) | payer OTHER ==
[2023-02-17 08:05] LABS: POTASSIUM 4.4 mmol/L (3.6-5.2)
== END 2023-02-17 18:51 | disposition home or self-care (01) ==
LOC: LAB 04:28
PROVIDERS: ATTEND Family Medicine
DX: N18.6 End stage renal disease (principal); E11.21 Type 2 diabetes mellitus with diabetic nephropathy
CPT/HCPCS: 80048

== ENCOUNTER 2023-02-18 11:43 | Outpatient (CLI) | payer OTHER ==
[~2023-02-18] VITALS: Ht 157.5 cm; Wt 68.0 kg
[2023-02-18 11:47] VITALS: BP 139/82; TEMP 98.7
== END 2023-02-18 18:59 | disposition home or self-care (01) ==
LOC: INF 11:43
PROVIDERS: ATTEND Family Medicine
DX: R79.89 Other specified abnormal findings of blood chemistry (principal)
CPT/HCPCS: 96360

== ENCOUNTER 2023-02-19 06:01 | Outpatient (CLI) | payer OTHER | END 2023-02-19 18:55 | disposition home or self-care (01) | LOC: LAB 06:01 | PROVIDERS: ATTEND Family Medicine | DX: N18.4 Chronic kidney disease, stage 4 (severe) (principal); D63.1 Anemia in chronic kidney disease | CPT/HCPCS: 85014; 85018 ==

== ENCOUNTER 2023-02-24 08:34 | Emergency (ER) | payer OTHER ==
[~2023-02-24] VITALS: Ht 157.5 cm; Wt 78.9 kg
[2023-02-24 08:34] VITALS: TEMP 98.1
[2023-02-24 12:05] VITALS: BP 155/79
== END 2023-02-24 12:07 | disposition home or self-care (01) ==
LOC: ED 08:34
DX: S09.8XXA Other specified injuries of head, initial encounter (principal); S00.01XA Abrasion of scalp, initial encounter; S00.03XA Contusion of scalp, initial encounter; W01.0XXA Fall on same level from slipping, tripping and stumbling without subsequent striking against object, initial encounter; Z23 Encounter for immunization
CPT/HCPCS: 90471; 90715; 99283

== ENCOUNTER 2023-02-25 12:28 | Inpatient (IN) | payer OTHER | END 2023-03-28 10:36 | disposition still patient (30) | LOC: PAVB 12:28 | PROVIDERS: ADMIT Family Medicine; ATTEND Family Medicine ==

== ENCOUNTER 2023-02-26 06:15 | Outpatient (CLI) | payer OTHER | END 2023-02-26 19:15 | disposition home or self-care (01) | LOC: LAB 06:15 | PROVIDERS: ATTEND Family Medicine | DX: D64.89 Other specified anemias (principal) | CPT/HCPCS: 85014; 85018 ==

== ENCOUNTER 2023-03-05 06:04 | Outpatient (CLI) | payer OTHER | END 2023-03-05 18:54 | disposition home or self-care (01) | LOC: LAB 06:04 | PROVIDERS: ATTEND Family Medicine | DX: D64.89 Other specified anemias (principal) | CPT/HCPCS: 85014; 85018 ==

== ENCOUNTER 2023-03-12 05:57 | Outpatient (CLI) | payer OTHER | END 2023-03-12 19:55 | disposition home or self-care (01) | LOC: LAB 05:57 | PROVIDERS: ATTEND Family Medicine | DX: D64.89 Other specified anemias (principal); N13.39 Other hydronephrosis | CPT/HCPCS: 85014; 85018 ==

== ENCOUNTER 2023-03-19 05:33 | Outpatient (CLI) | payer OTHER | END 2023-03-19 19:05 | disposition home or self-care (01) | LOC: LAB 05:33 | PROVIDERS: ATTEND Family Medicine | DX: D64.89 Other specified anemias (principal) | CPT/HCPCS: 36415; 85014; 85018 ==

== ENCOUNTER 2023-03-26 07:20 | Outpatient (CLI) | payer OTHER | END 2023-03-26 19:52 | disposition home or self-care (01) | LOC: LAB 07:20 | PROVIDERS: ATTEND Family Medicine | DX: D64.89 Other specified anemias (principal); N18.4 Chronic kidney disease, stage 4 (severe) | CPT/HCPCS: 85014; 85018 ==

== ENCOUNTER 2023-03-28 11:07 | Inpatient (IN) | payer OTHER | END 2023-04-27 17:33 | disposition still patient (30) | LOC: PAVB 11:07 | PROVIDERS: ADMIT Family Medicine; ATTEND Family Medicine ==

== ENCOUNTER 2023-04-02 06:03 | Outpatient (CLI) | payer OTHER | END 2023-04-02 18:52 | disposition home or self-care (01) | LOC: LAB 06:03 | PROVIDERS: ATTEND Family Medicine | DX: D64.89 Other specified anemias (principal) | CPT/HCPCS: 36415; 85014; 85018 ==

== ENCOUNTER 2023-04-09 07:47 | Outpatient (CLI) | payer OTHER | END 2023-04-09 18:53 | disposition home or self-care (01) | LOC: LAB 07:47 | PROVIDERS: ATTEND Family Medicine | DX: D64.89 Other specified anemias (principal) | CPT/HCPCS: 36415; 85014; 85018 ==

== ENCOUNTER 2023-04-10 08:11 | Outpatient (CLI) | payer OTHER ==
[2023-04-10 08:47] LABS: POTASSIUM 4.5 mmol/L (3.6-5.2)
[2023-04-10 08:52] LABS: PLATELET COUNT 237 K/uL (152-353)
== END 2023-04-10 22:04 | disposition home or self-care (01) ==
LOC: LAB 08:11
PROVIDERS: ATTEND Family Medicine
DX: N13.30 Unspecified hydronephrosis (principal); N25.81 Secondary hyperparathyroidism of renal origin; D63.1 Anemia in chronic kidney disease; N18.4 Chronic kidney disease, stage 4 (severe); R82.998 Other abnormal findings in urine
CPT/HCPCS: 36415; 80053; 81000; 82306; 82570; 83735; 83970; 84100; 84156; 84550; 85027; 87077; 87086; 87088; 87186

== ENCOUNTER 2023-04-16 07:36 | Outpatient (CLI) | payer OTHER | END 2023-04-16 19:04 | disposition home or self-care (01) | LOC: LAB 07:36 | PROVIDERS: ATTEND Family Medicine | DX: D64.89 Other specified anemias (principal) | CPT/HCPCS: 85014; 85018 ==

== ENCOUNTER 2023-04-23 07:51 | Outpatient (CLI) | payer OTHER | END 2023-04-23 19:10 | disposition home or self-care (01) | LOC: LAB 07:51 | PROVIDERS: ATTEND Family Medicine | DX: D64.89 Other specified anemias (principal) | CPT/HCPCS: 85014; 85018 ==

== ENCOUNTER 2023-04-30 05:50 | Outpatient (CLI) | payer OTHER ==
[2023-04-30 06:24] LABS: PLATELET COUNT 209 K/uL (152-353)
[2023-04-30 06:27] LABS: POTASSIUM 4.3 mmol/L (3.6-5.2)
== END 2023-04-30 18:53 | disposition home or self-care (01) ==
LOC: LAB 05:50
PROVIDERS: ATTEND Family Medicine
DX: D64.89 Other specified anemias (principal); E11.9 Type 2 diabetes mellitus without complications; I10 Essential (primary) hypertension
CPT/HCPCS: 36415; 80053; 83036; 85027

== ENCOUNTER 2023-05-07 07:36 | Outpatient (CLI) | payer OTHER | END 2023-05-07 19:16 | disposition home or self-care (01) | LOC: LAB 07:36 | PROVIDERS: ATTEND Family Medicine | DX: D64.89 Other specified anemias (principal); N18.9 Chronic kidney disease, unspecified; D63.1 Anemia in chronic kidney disease | CPT/HCPCS: 36415; 85014; 85018 ==

== ENCOUNTER 2023-05-14 07:48 | Outpatient (CLI) | payer OTHER | END 2023-05-14 19:11 | disposition home or self-care (01) | LOC: LAB 07:48 | PROVIDERS: ATTEND Family Medicine | DX: D64.89 Other specified anemias (principal) | CPT/HCPCS: 85014; 85018 ==

== ENCOUNTER 2023-05-27 08:02 | Outpatient (CLI) | payer OTHER | END 2023-05-27 21:51 | disposition home or self-care (01) | LOC: US 08:02 | PROVIDERS: ATTEND Specialist | DX: N13.30 Unspecified hydronephrosis (principal) ==

== ENCOUNTER 2023-06-04 08:22 | Outpatient (CLI) | payer OTHER | END 2023-06-04 20:22 | disposition home or self-care (01) | LOC: LAB 08:22 | PROVIDERS: ATTEND Family Medicine | DX: D64.89 Other specified anemias (principal); D63.1 Anemia in chronic kidney disease; N18.9 Chronic kidney disease, unspecified | CPT/HCPCS: 36415; 85014; 85018 ==

== ENCOUNTER 2023-06-11 07:39 | Outpatient (CLI) | payer OTHER ==
[~2023-06-11 07:39] MED LIST changes: +VENLAFAXINE25 MG PO; -VENLAFAXINE50 MG PO
== END 2023-06-11 18:51 | disposition home or self-care (01) ==
LOC: LAB 07:39
PROVIDERS: ATTEND Family Medicine
DX: D64.89 Other specified anemias (principal)
CPT/HCPCS: 85014; 85018

== ENCOUNTER 2023-06-12 23:19 | Emergency (ER) | payer OTHER ==
[~2023-06-12] VITALS: Ht 157.5 cm; Wt 83.9 kg
[2023-06-13 00:09] LABS: PLATELET COUNT 254 K/uL (152-353)
[2023-06-13 00:17] LABS: POTASSIUM 4.2 mmol/L (3.6-5.2)
[2023-06-13 02:25] VITALS: BP 99/51
[2023-06-13] MEDS ORDERED: OXYB5TAB64 PO (11:42)
[2023-06-13] MEDS ORDERED: PANTOPRAZOLE 40MG TA PO (11:46)
[2023-06-13] MEDS ORDERED: DENO60SO SC (11:47)
[2023-06-13] MEDS ORDERED: AMLODIPINE BESYLATE PO (11:48)
[2023-06-13] MEDS ORDERED: GABAPENTIN PO (11:49)
== END 2023-06-13 02:25 ==
LOC: ED 23:19
PROVIDERS: Family Medicine
DX: E16.2 Hypoglycemia, unspecified (principal); R41.82 Altered mental status, unspecified; N18.9 Chronic kidney disease, unspecified
CPT/HCPCS: 36415; 80053; 83605; 85027; 96374; 99284; J7060

== ENCOUNTER 2023-06-13 07:21 | Observation (INO) | payer OTHER ==
[~2023-06-13] VITALS: Ht 165.1 cm; Wt 75.1 kg
[2023-06-13] VITALS (7 sets, daily range): BP systolic 105–157; BP diastolic 57–72; TEMP 97.8–100.4; Ht 165.1 cm; Wt 75.1 kg
[2023-06-13 07:31] LABS: PLATELET COUNT 282 K/uL (152-353)
[2023-06-13 07:46] LABS: POTASSIUM 4.8 mmol/L (3.6-5.2)
[2023-06-13] MEDS ORDERED: OXYB5TAB64 PO (11:42)
[2023-06-13] MEDS ORDERED: PANTOPRAZOLE 40MG TA PO (11:46)
[2023-06-13] MEDS ORDERED: DENO60SO SC (11:47)
[2023-06-13] MEDS ORDERED: AMLODIPINE BESYLATE PO (11:48)
[2023-06-13] MEDS ORDERED: GABAPENTIN PO (11:49)
[2023-06-14] VITALS: BP 103/39; TEMP 98.9
[2023-06-14 04:00] VITALS: BP 120/60; TEMP 98.3
[2023-06-14 06:35] LABS: PLATELET COUNT 213 K/uL (152-353)
[2023-06-14 06:43] LABS: POTASSIUM 5.6 mmol/L (3.6-5.2)
[2023-06-14 08:00] VITALS: BP 114/69; TEMP 98.5
[2023-06-14 12:00] VITALS: BP 133/61; TEMP 97.9
[2023-06-14 16:00] VITALS: BP 119/57; TEMP 98.7
[2023-06-14 19:51] VITALS: BP 124/64; TEMP 98.8
[2023-06-15] VITALS: BP 106/61; TEMP 98.8
[2023-06-15 04:00] VITALS: BP 99/46; TEMP 98.6
[2023-06-15 05:00] LABS: PLATELET COUNT 240 K/uL (152-353)
[2023-06-15 08:00] VITALS: BP 132/64; TEMP 98.9
== END 2023-06-15 10:55 ==
LOC: ED 07:21 → MED/SURG 08:26
PROVIDERS: Family Medicine; ADMIT Internal Medicine Endocrinology, Diabetes & Metabolism; ATTEND Internal Medicine Endocrinology, Diabetes & Metabolism
DX: E16.2 Hypoglycemia, unspecified (principal); R56.9 Unspecified convulsions; F32.A Depression, unspecified; I12.9 Hypertensive chronic kidney disease with stage 1 through stage 4 chronic kidney disease, or unspecified chronic kidney disease; K21.9 Gastro-esophageal reflux disease without esophagitis; N18.30 Chronic kidney disease, stage 3 unspecified; M81.8 Other osteoporosis without current pathological fracture; F03.90 Unspecified dementia, unspecified severity, without behavioral disturbance, psychotic disturbance, mood disturbance, and anxiety; E66.9 Obesity, unspecified; Z68.27 Body mass index [BMI] 27.0-27.9, adult
CPT/HCPCS: 36415; 80048; 80053; 82948; 83525; 84484; 84681; 85027; 93005; 96361; 96374; 96375; 96376; 99221; 99284; G0378; J1642; J1885; J2354; J7060

== ENCOUNTER 2023-06-16 15:40 | Inpatient (IN) | payer OTHER ==
[~2023-06-16] VITALS: Ht 165.1 cm; Wt 81.9 kg
[2023-06-16 15:40] VITALS: BP 124/41; TEMP 98
[~2023-06-16 15:40] MED LIST changes: +AMLODIPINE BESYLATE PO; +DENO60SO SC; +GABAPENTIN PO; +OXYB5TAB64 PO; +PANTOPRAZOLE 40MG TA PO
[2023-06-16 16:13] LABS: PLATELET COUNT 396 K/uL (152-353)
[2023-06-16 16:29] LABS: POTASSIUM 5.8 mmol/L (3.6-5.2)
[2023-06-16 18:34] VITALS: BP 114/54; TEMP 97.6; Ht 165.1 cm; Wt 81.9 kg
[2023-06-16 19:57] VITALS: BP 131/62; TEMP 97.6
[2023-06-16 23:33] VITALS: BP 122/62; TEMP 97.7
[2023-06-17 04:00] VITALS: BP 119/45; TEMP 99.9
[2023-06-17 04:18] LABS: PLATELET COUNT 335 K/uL (152-353)
[2023-06-17 04:56] LABS: POTASSIUM 6.1 mmol/L (3.6-5.2)
[2023-06-17] MEDS ORDERED: GLUCOSE40 % PO (06:28)
[2023-06-17] MEDS ORDERED: MIRALAX17 GM PO (06:30)
[2023-06-17 08:00] VITALS: BP 120/55; TEMP 99.1
[2023-06-17 12:00] VITALS: BP 145/66; TEMP 98.7
[2023-06-17 16:00] VITALS: BP 143/59; TEMP 98.7
[2023-06-17 20:00] VITALS: BP 150/61; TEMP 99.2
[2023-06-17 23:34] VITALS: BP 140/71; BP 159/103; TEMP 98.2; TEMP 98.8
[2023-06-18 03:55] VITALS: BP 148/60; TEMP 98.9
[2023-06-18 03:57] LABS: POTASSIUM 5.1 mmol/L (3.6-5.2)
[2023-06-18 08:00] VITALS: BP 143/67; TEMP 98.7
[2023-06-18 12:00] VITALS: BP 139/62; TEMP 98.2
[2023-06-18 16:00] VITALS: BP 155/77; TEMP 97.9
[2023-06-18 19:47] VITALS: BP 121/59; TEMP 99.9
[2023-06-18 23:34] VITALS: BP 108/54; TEMP 98.5
[2023-06-19 03:43] VITALS: BP 107/55; TEMP 100.8
[2023-06-19 05:23] LABS: POTASSIUM 4.5 mmol/L (3.6-5.2)
[2023-06-19 07:06] VITALS: TEMP 99.4
[2023-06-19 12:00] VITALS: BP 147/74; TEMP 99.5
[2023-06-19 16:00] VITALS: BP 141/76; TEMP 99.1
[2023-06-19 20:00] VITALS: BP 145/66; TEMP 98.5
[2023-06-20] VITALS: BP 113/48; TEMP 98.3
[2023-06-20 04:00] VITALS: BP 122/54; TEMP 98.1
[2023-06-20 05:54] LABS: PLATELET COUNT 291 K/uL (152-353)
[2023-06-20 06:00] LABS: POTASSIUM 4.2 mmol/L (3.6-5.2)
[2023-06-20 08:00] VITALS: BP 119/58; TEMP 99
[2023-06-20 12:00] VITALS: BP 125/63; TEMP 98.8
[2023-06-20 16:00] VITALS: BP 140/57; TEMP 98.8
[2023-06-20 20:00] VITALS: BP 126/69; TEMP 98.6
[2023-06-21] VITALS: BP 121/59; TEMP 98.6
[2023-06-21 04:00] VITALS: BP 117/53; TEMP 98.6
[2023-06-21 07:09] LABS: PLATELET COUNT 320 K/uL (152-353)
[2023-06-21 07:28] LABS: POTASSIUM 4.8 mmol/L (3.6-5.2)
[2023-06-21 08:00] VITALS: BP 108/45; TEMP 98.3
[2023-06-21] MEDS ORDERED: DECADRON4 MG PO (11:37)
[2023-06-21] MEDS ORDERED: LOSA50TA PO (14:28)
== END 2023-06-21 15:05 | DRG 644 ==
LOC: ED 15:55 → MED/SURG 16:38
PROVIDERS: Family Medicine; Internal Medicine; ADMIT Internal Medicine Endocrinology, Diabetes & Metabolism; ATTEND Internal Medicine Endocrinology, Diabetes & Metabolism
DX: E16.1 Other hypoglycemia (principal); E27.49 Other adrenocortical insufficiency; N17.8 Other acute kidney failure; F03.918 Unspecified dementia, unspecified severity, with other behavioral disturbance; N18.9 Chronic kidney disease, unspecified; M25.511 Pain in right shoulder; D64.89 Other specified anemias; K21.9 Gastro-esophageal reflux disease without esophagitis; N18.30 Chronic kidney disease, stage 3 unspecified; M81.8 Other osteoporosis without current pathological fracture; I12.9 Hypertensive chronic kidney disease with stage 1 through stage 4 chronic kidney disease, or unspecified chronic kidney disease
CPT/HCPCS: 36415; 80048; 80053; 82533; 82542; 82550; 82947; 82948; 83605; 84132; 85027; 85379; 96361; 96374; 96375; 96376; 99284; J0612; J1100; J1642; J1650; J1885; J1940; J2354; J2405; J7060; Q9963

== ENCOUNTER 2023-07-02 08:51 | Outpatient (CLI) | payer OTHER ==
[~2023-07-02 08:51] MED LIST changes: +DECADRON4 MG PO; +GLUCOSE40 % PO; +MIRALAX17 GM PO
== END 2023-07-02 22:01 | disposition home or self-care (01) ==
LOC: LAB 08:51
PROVIDERS: ATTEND Family Medicine
DX: D64.89 Other specified anemias (principal); N18.4 Chronic kidney disease, stage 4 (severe)
CPT/HCPCS: 82306; 82310; 85014; 85018

== ENCOUNTER 2023-07-08 04:43 | Outpatient (CLI) | payer OTHER ==
[2023-07-08 06:01] LABS: PLATELET COUNT 325 K/uL (152-353)
[2023-07-08 06:58] LABS: POTASSIUM 5.2 mmol/L (3.6-5.2)
== END 2023-07-08 19:01 | disposition home or self-care (01) ==
LOC: LAB 04:43
PROVIDERS: ATTEND Family Medicine
DX: N13.30 Unspecified hydronephrosis (principal); N25.81 Secondary hyperparathyroidism of renal origin; N18.4 Chronic kidney disease, stage 4 (severe); Z79.899 Other long term (current) drug therapy; I12.9 Hypertensive chronic kidney disease with stage 1 through stage 4 chronic kidney disease, or unspecified chronic kidney disease
CPT/HCPCS: 80053; 81000; 82306; 82570; 83735; 83970; 84100; 84156; 84550; 85027; 87088

== ENCOUNTER 2023-07-09 06:37 | Outpatient (CLI) | payer OTHER | END 2023-07-09 18:55 | disposition home or self-care (01) | LOC: LAB 06:37 | PROVIDERS: ATTEND Family Medicine | DX: D64.89 Other specified anemias (principal) | CPT/HCPCS: 85014; 85018 ==

== ENCOUNTER 2023-07-16 05:27 | Outpatient (CLI) | payer OTHER | END 2023-07-16 20:41 | disposition home or self-care (01) | LOC: LAB 05:27 | PROVIDERS: ATTEND Family Medicine | DX: N18.9 Chronic kidney disease, unspecified (principal); D63.1 Anemia in chronic kidney disease | CPT/HCPCS: 85014; 85018 ==

== ENCOUNTER 2023-08-06 05:03 | Outpatient (CLI) | payer OTHER | END 2023-08-06 18:50 | disposition home or self-care (01) | LOC: LAB 05:03 | PROVIDERS: ATTEND Family Medicine | DX: N18.9 Chronic kidney disease, unspecified (principal); D63.1 Anemia in chronic kidney disease | CPT/HCPCS: 36415; 85014; 85018 ==

== ENCOUNTER 2023-08-13 05:55 | Outpatient (CLI) | payer OTHER | END 2023-08-13 18:55 | disposition home or self-care (01) | LOC: LAB 05:55 | PROVIDERS: ATTEND Family Medicine | DX: N18.4 Chronic kidney disease, stage 4 (severe) (principal); D63.1 Anemia in chronic kidney disease | CPT/HCPCS: 85014; 85018 ==

== ENCOUNTER 2023-11-26 10:17 | Outpatient (CLI) | payer OTHER | END 2023-11-26 19:29 | disposition home or self-care (01) | LOC: LAB 10:17 | PROVIDERS: ATTEND Family Medicine | DX: D64.89 Other specified anemias (principal); E87.6 Hypokalemia | CPT/HCPCS: 84132; 85014; 85018 ==

== ENCOUNTER 2023-12-10 07:33 | Outpatient (CLI) | payer OTHER | END 2023-12-10 19:04 | disposition home or self-care (01) | LOC: LAB 07:33 | PROVIDERS: ATTEND Family Medicine | DX: D64.89 Other specified anemias (principal); E83.39 Other disorders of phosphorus metabolism | CPT/HCPCS: 84100; 85014; 85018 ==

== ENCOUNTER 2023-12-17 06:01 | Outpatient (CLI) | payer OTHER | END 2023-12-17 19:18 | disposition home or self-care (01) | LOC: LAB 06:01 | PROVIDERS: ATTEND Family Medicine | DX: E87.6 Hypokalemia (principal); D64.89 Other specified anemias | CPT/HCPCS: 84132; 85014; 85018 ==